=== PATIENT | male | born 1945 | race Caucasian/White ===

== ENCOUNTER 2016-10-23 22:46 | Inpatient (IN) | payer BC ==
--- NOTE | ~2016-10-23 | DS ---
Discharge Summary [facility] [address] [place]. [address] NAME: CRISTINA CLEMENT : 43 STATUS : DIS IN PAT#: [id number] AGE: 71 ADM/REG DATE : 10/23/16 MR#: [id number] REPORT SERV DATE: 11/04/16 DICTATED BY: NDYIA MCGOVERN DATE: 11/04/16 REPORT STATUS : Draft TRANSCRIBED BY: MODL DATE: 11/04/16 ADMISSION DATE: 10/23/2016 DISCHARGE DATE: 11/04/2016 Total days of hospitalization from 10/23/2016 to 11/04/2016. This is a long hospitalization and I personally saw this patient starting from 11/01/2016. For hospitalization before 11/01/2016, please see history of present illness dictated by Dr. Singh on 10/23/2016. Please also see interim discharge summary dictated by Dr. Maurice on 10/28/2016 for the period from 10/23/2016 to 10/28/2016. Please also see notes of nurse practitioner of Andrzej Murillo for period from 10/28/2016 to 11/01/2016. DISCHARGE DIAGNOSES: 1. Status post [id number] myocardial infarction, status post coronary artery bypass grafting done by Dr. El on 10/28/2016. 2. Acute on chronic systolic heart failure, systolic dysfunction with ejection fraction 20%. 3. Severe oxygen-dependent chronic obstructive pulmonary disease. 4. History of atrial fibrillation, currently in normal sinus rhythm. 5. Supratherapeutic INR, currently Coumadin on hold. Check INR on Monday through [facility] Outpatient. 6. Diabetes mellitus type 2, controlled. 7. History of mitral regurgitation, status post mitral valve replacement. 8. Left carotid artery stenosis, noncritical. Follow up with field service supervisor outpatient. 9. Ischemic cardiomyopathy with ejection fraction 20%. 10.Overtreated hypothyroidism, dose of Synthroid decreased to 150 mcg a day. Check TSH in four weeks per nurse marina Aguilar, who sees the patient. 11.History of long-standing tobacco abuse. CONSULTANTS ON THE CASE: During this week, field service supervisor, Dr. Castillo; computer systems designer, Dr. Cabrera Haywood and nurse practitioner, Macarena; Cardiothoracic Surgery, Dr. El and nurse practitioner, Giovanny Greer. For the period from 11/01 to 11/04, I saw the patient. The patient was doing physical therapy and cardiac rehabilitation as well. The patient had one episode of atrial fibrillation yesterday and he was placed on oral amiodarone and he converted to normal sinus rhythm. The patient was still weak and he is on chronic home oxygen as well as with congestive heart failure, ejection fraction 20%. He was strongly recommended to go to inpatient rehabilitation and he was approved for [facility], but the patient strongly refused to go to inpatient rehab. He requested to be discharged home today. He said that he will not stay in the hospital. He will even leave the hospital and he basically wanted to be discharged. The patient was seen by field service supervisor, Dr. Castillo. The patient's INR was supratherapeutic for the last three days and his INR was 4.3 today. His Coumadin was on hold, so since patient was demanding to be discharged, Dr. Castillo recommended the patient to hold his Coumadin, and she scheduled him on Monday on 11/07 [address] [facility] and check his PT/INR. In the same time, Giovanny Greer spoke with the patient's family and they reassured that the patient has somebody at home to stay with him as well as I arranged for home health Discharge Summary [address] [address] NAME: CRISTINA CLEMENT : 43 STATUS : DIS IN PAT#: [id number] AGE: 71 ADM/REG DATE : 10/23/16 MR#: [id number] REPORT SERV DATE: 11/04/16 DICTATED BY: NYDIA MCGOVERN DATE: 11/04/16 REPORT STATUS : Draft TRANSCRIBED BY: KIM DATE: 11/04/16 physical therapy also to take care of the patient at home. Overall, the patient was slowly progressing, but he has severe COPD and he needs to follow up with Dr. Haywood, who left prescriptions for the patient for inhalers. He needs to follow up with Dr. Haywood in two to three weeks as well as he needs to follow up with his primary care provider, Smita Cummings next week. He needs to follow up with nurse practitioner, Giovanny Greer in three to four weeks, and he needs to follow up with field service supervisor, Dr. Castillo. He has an appointment on 11/21 [address] Castillo, field service supervisor. The patient also was told that he needs to check his TSH per Smita Cummings, nurse practitioner, who takes care of the patient. The TSH needs to be checked in four weeks because we reduced the dose of Synthroid to 150 mcg a day. DISCHARGE MEDICATIONS: Aspirin 81 mg a day, Lipitor 40 mg a day, amiodarone 200 mg twice a day. Prescription for amiodarone and Lipitor was given by field service supervisor and recommended by field service supervisor, Dr. Castillo. Lasix 20 mg a day, also prescription recommended by Dr. Castillo. Neurontin 400 three times a day, glimepiride was reduced to 1 mg daily. Levothyroxine dose was reduced to 150 mcg a day and it was prescribed as Synthroid since patient can only tolerate Synthroid. Lisinopril 2.5 mg a day, prescription given by Dr. Castillo. Toprol-XL 50 mg p.o. b.i.d., prescription given by Dr. Castillo. Transdermal patch nicotine, I gave prescription myself. Continue home trazodone on 50-100 mg at bedtime. Breo Ellipta 200/25 mg one puff daily, Respimat 2.5 mcg two puffs daily, albuterol 2.5 mg q.4 hours p.r.n. for shortness of breath. These three prescriptions including Breo, Respimat, and albuterol were prescribed by Dr. Haywood. The patient was discharged in a stable condition per his own demand, although he would benefit more from inpatient rehab with him having very advanced COPD right after coronary artery bypass grafting, but he demanded to be discharged. We spent 45 minutes on discharge and followup appointment scheduled, and he will check his PT/INR on Monday, 11/[address] [facility]. If the INR will be appropriate, Coumadin will be restarted per field service supervisor, Dr. Castillo. I spent 45 minutes on discharge. MG/MODL Nydia Mcgovern M.D. / [id number] CC: Mary Herrera AMIE SIMS Garrick B Spoon, PA-C Michael S. Loga, N.P. Lisa Gail Carkner, M.D. Discharge Summary [address] [address] NAME: CRISTINA CLEMENT RAMESH : 43 STATUS : DIS IN PAT#: [id number] AGE: 71 ADM/REG DATE : 10/23/16 MR#: [id number] REPORT SERV DATE: 11/04/16 DICTATED BY: NYDIA MCGOVERN DATE: 11/04/16 REPORT STATUS : Draft TRANSCRIBED BY: KIM DATE: 11/04/16 Mary Palomares M.D.
--- NOTE | ~2016-10-23 | CN ---
Consultation Report [place] [id number] [facility] [address] [place]. [address] NAME: CRISTINA CLEMENT : 43 STATUS : ADM IN PAT#: [id number] AGE: 71 ADM/REG DATE : 10/23/16 MR#: [id number] REPORT SERV DATE: 10/26/16 DICTATED BY: RAMESH EL DATE: 10/25/16 REPORT STATUS : Draft TRANSCRIBED BY: KIM DATE: 10/25/16 CONSULTATION NOTE DATE OF CONSULTATION: ATTENDING AUTHORIZATION COORDINATOR: Patricia Castillo M.D. REASON FOR CONSULTATION: Severe three-vessel coronary artery disease with recent non-ST elevation myocardial infarction. CHIEF COMPLAINT: Heartburn for five months. HISTORY OF PRESENT ILLNESS: This is a 71-year-old gentleman, smoker of up to two packs per day for 61 years, complains of intermittent chest pain over the last 5 months. He actually reports exercise intolerance and exertional discomfort for about the last two years. He has continued to smoke. He describes his pain as heartburn that goes across his chest, radiates into his shoulders, neck, and back. It is associated with dyspnea and shortness of breath. He has been sleeping, sitting upright in a chair at night because when he lies down he has shortness of breath and pain. He has not found any medication that relieves this. On Monday, he had onset of severe pain and went to [facility]. There he was noted to have abnormal EKG and elevated troponin I. He was referred to [facility] for Cardiology consultation and further care. He underwent echocardiogram here that did not show any significant valvulopathy, ejection fraction was 50%. Today, he underwent coronary arteriogram, this demonstrated severe three- vessel coronary artery disease with total occlusion of the proximal circumflex, and 90% or greater ostial right coronary artery stenosis as well as significant flow-limiting left anterior descending disease as well. His left ventricular function by ventriculogram is 20%. We are asked to see for further evaluation and management. PRIOR MEDICAL HISTORY: 1. COPD. 2. Type 2 diabetes mellitus, non-insulin dependent. 3. Hypothyroidism, on thyroid replacement therapy. PRIOR SURGICAL HISTORY: 1. Cholecystectomy. 2. Hemorrhoidectomy x3. 3. Tonsillectomy. 4. Cataract excision. ALLERGIES: INCLUDE SULFA WHICH CAUSE HIVES. Consultation Report [place] [id number] [place]. [address] NAME: CRISTINA CLEMENT : 43 STATUS : ADM IN PAT#: [id number] AGE: 71 ADM/REG DATE : 10/23/16 MR#: [id number] REPORT SERV DATE: 10/26/16 DICTATED BY: RAMESH EL DATE: 10/25/16 REPORT STATUS : Draft TRANSCRIBED BY: KIM DATE: 10/25/16 MEDICATIONS: At home include: Diazepam 10 mg p.o. b.i.d., gabapentin 400 mg p.o. t.i.d., Amaryl 2 mg p.o. daily, hydrocodone 10/325 one tab p.o. q.6 hours p.r.n. pain, levothyroxine 200 mcg p.o. daily, Mevacor 40 mg p.o. at h.s., metoprolol succinate 25 mg p.o. b.i.d., potassium 10 mEq tablets 1 p.o. daily, ranitidine 150 mg p.o. b.i.d., trazodone 50 mg p.o. at h.s. FAMILY HISTORY: Significant for father with IL at age 72, mother with congestive heart failure, brother had coronary disease and coronary artery bypass grafting. SOCIAL HISTORY: He lives with a insect control inspector and has smoked 2 packs of cigarettes per day or more for the last 61 years. He denies the use of alcohol or illicit drugs. 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 REVIEW OF SYSTEMS: In general, as above. He has upper and lower dentures, previous cataract excision. Wears glasses. He has productive cough of yellow sputum on a daily basis. He has daily wheezing. He denies hemoptysis. He denies any bleeding diathesis. He denies any blood clots. Denies any history of stroke or TIAs. Otherwise, negative or as above. PHYSICAL EXAMINATION: GENERAL: He is a pleasant elderly white haired gentleman, no acute distress. His height is 172.72 cm, weight 90.71 kg giving him BMI of 30.4 kg/m2. VITAL SIGNS: Blood pressure 127/60, pulse is 95, respirations 16, temperature 98 degrees Fahrenheit. HEENT: Normocephalic, atraumatic. Pupils equal, round, reactive to light and accommodation. Sclerae: Clear. Conjunctivae: Goff. No xanthelasma. Oral and buccal mucosa pink and moist, and he has upper and lower dentures in place. Mallampati class II airway. NECK: Supple. No restricted range of motion, left carotid bruit is heard. He has symmetric carotid pulsations bilaterally. No cervical adenopathy. Chest: Scattered wheezes and crackles. Wheezes predominantly over the right posterior lung field. He has no use of accessory muscles. No chest wall tenderness. No deformity. Breasts: Not examined. CV: Regular rate and rhythm without murmur or rub. He has palpable and symmetric central pulses, diminished pulses in the feet. Pulses are palpable. ABDOMEN: Soft, obese, nontender, with normoactive bowel sounds. No hepatosplenomegaly. /RECTAL: Declined. MUSCULOSKELETAL: No kyphoscoliosis. No asymmetry. NEUROLOGIC: He is alert, oriented to day, date, place, and situation, speech is clear, fluent, no focal deficits. No tremors. SKIN, HAIR, AND NAILS: No lesions, masses, or rashes. DATA: Coronary arteriogram which I reviewed today showing three-vessel flow-limiting coronary artery disease and diminished left ventricular function. EKG shows right bundle- branch block and underlying sinus rhythm as well as left posterior fascicular block. Consultation Report [address] [place]. [address] NAME: CRISTINA CLEMENT : 43 STATUS : ADM IN [facility] WITH [facility]#: [id number] AGE: 71 ADM/REG DATE : 10/23/16 MR#: [id number] REPORT SERV DATE: 10/26/16 DICTATED BY: RAMESH EL DATE: 10/25/16 REPORT STATUS : Draft TRANSCRIBED BY: MODL DATE: 10/25/16 LABORATORY DATA: Sodium is 139, potassium 4.3, chloride 99, CO2 of 28, BUN 16, creatinine 0.92. CBC shows WBC is 4.7, hemoglobin 14 g, hematocrit 42.4%, platelets 174,000. Carotid ultrasound shows grade 2 to 3 left internal carotid artery stenosis, right internal carotid artery has no significant disease. CT chest is currently pending. His bedside spirometry shows FVC abnormal at 37% of predicted at 1.49, his FEV1 is 27% of predicted at 0.8, and FEV1 to FVC is 54, consistent with COPD. His arterial blood gases; pH 7.42, CO2 of 44, PO2 of 52 on room air, bicarb is 28.1, saturation 87% on room air. IMPRESSION: Severe three-vessel flow-limiting coronary artery disease with recent non-ST elevation myocardial infarction in a 71-year-old gentleman, with comorbid conditions of chronic obstructive pulmonary disease and type 2 diabetes mellitus. We talked with the patient about possible coronary artery bypass grafting, indications, benefits, and serious risks including but not limited to things such as bleeding, need for blood or blood product transfusion and their attendant risks, infection including deep sternal infection, mediastinitis, pneumonia, damage to the kidneys including kidney failure and dialysis, damage to the liver or the lungs, heart attack, stroke, abnormal heart rhythm, and prolonged ventilation, and even . The patient indicates his understanding and is considering his options at present. We offered him possible bypass grafting on Monday and in the interim would enlist the help of Pulmonology to optimize his breathing and possibly then repeat his bedside spirometry. Using Society of Thoracic Surgeons Database; predicted risk of mortality was 3.43%, morbidity or mortality 26.074%, and this was shared with the patient and his family, and they were told this is elevated risk. We appreciate the opportunity to participate in this patient's care and will follow with you. DICTATED BY: Radha Montenegro/KIM Ramesh El M.D. / [id number] CC: Rufus Maurice Jr, MD
--- NOTE | ~2016-10-23 | CN ---
Consultation Report [facility] [address] [place]. [address] NAME: CRISTINA VLILEDA : 43 STATUS : ADM IN PAT#: [id number] AGE: 71 ADM/REG DATE : 10/23/16 MR#: [id number] REPORT SERV DATE: 10/25/16 DICTATED BY: BERNARDO GARCIA DATE: 10/25/16 REPORT STATUS : Draft TRANSCRIBED BY: MODL DATE: 10/25/16 DATE OF CONSULTATION: 10/25/2016 CHIEF COMPLAINT: Shortness of breath in a patient tentatively scheduled for coronary artery bypass graft surgery. HISTORY OF PRESENT ILLNESS: Mr. Cristina Villeda is a pleasant 71-year-old white male with a past medical history significant for clinical COPD with oxygen dependence, ongoing tobacco dependency, and diabetes mellitus, who presented to [facility] from an outside facility with complaints of chest pain. It should be noted that Mr. Villeda has not been hospitalized recently and is usually in fairly good health given his age and comorbidities. Mr. Villeda is not currently under the care of the wicker molded candles. He is on chronic oxygen at 2-3 L. He occasionally takes nebulized albuterol, but not with any great regularity. The patient has smoked up until the time of presentation. He has smoked approximately two packs a day for the last 60 years. He largely denies symptomatology related to obstructive sleep apnea. He describes his exercise tolerance prior to this recent illness as being fairly good. Apparently, Mr. Villeda has had issues with chest pain over the last two weeks. He eventually presented to [facility]. He was eventually transitioned to [facility] for further workup. Upon arrival, his troponins were elevated as high as 2.07. He did eventually undergo cardiac catheterization, which by report showed significant coronary artery disease. He is currently under consideration for coronary artery bypass graft surgery. Pulmonary has been asked to stratify his pulmonary risk as well as optimize the patient. Currently, the patient is on 3 L of supplemental oxygen with good oxygen saturations. He does have a periodic cough that is producing some thick sputum. This is more than his usual sputum production. He does have some dyspnea on exertion. He does have complaints of worsening wheezing in his chest. He denies recurrent exacerbations of his breathing or recurrent pneumonias. He has been told that he has COPD, but has never undergone formal pulmonary function testing. The patient states that his chest pain has largely resolved at this time. He has no complaints of murmurs or palpitations. He denies any lower extremity edema. In regard to constitutional symptoms, he currently denies fever, chills, nausea, vomiting, abdominal pain, or edema. PAST MEDICAL HISTORY: 1. Clinical COPD. 2. Diabetes mellitus. 3. Tobacco dependency. 4. Herpes zoster. 5. Peripheral arterial disease. Consultation Report [address] [address] NAME: CRISTINA VILLEDA : 43 STATUS : ADM IN PAT#: [id number] AGE: 71 ADM/REG DATE : 10/23/16 MR#: [id number] REPORT SERV DATE: 10/25/16 DICTATED BY: BERNARDO GARCIA DATE: 10/25/16 REPORT STATUS : Draft TRANSCRIBED BY: KIM DATE: 10/25/16 6. Hypertension. 7. Dyslipidemia. 8. Peripheral neuropathy. 9. Hypothyroidism. PAST SURGICAL HISTORY: 1. Cholecystectomy. 2. Hemorrhoidectomy. 3. Right carotid endarterectomy. FAMILY HISTORY: The patient has a strong family history of congestive heart failure as well as coronary artery disease. He knows of no lung disease in the family. SOCIAL HISTORY: The patient is currently accompanied by his daughter, who is at bedside. 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 He has also had a noxious fume exposure in the remote past to acid fumes. TOBACCO/ALCOHOL: As previously mentioned, the patient continues to smoke up until the time of presentation. He has smoked at least two packs a day for the last 60 years. He denies any recent alcohol or illicit drug use. MEDICATIONS: Trazodone 50 mg, DuoNeb, Levaquin 750 mg, Neurontin 400 mg, famotidine 20 mg, levothyroxine 200 mcg, diazepam 10 mg, valacyclovir 1000 mg. ALLERGIES: THE PATIENT HAS KNOWN ALLERGY TO SULFA PRODUCTS. REVIEW OF SYSTEMS: A complete review of systems was performed with the pertinent positives and negatives contained within the body of the HPI. PHYSICAL EXAMINATION: VITAL SIGNS: Blood pressure is 128/65, heart rate is 94, T-max 99.5, respiratory rate is 16, and SpO2 is 92% on 3 L. GENERAL: The patient is a pleasant, well-nourished/well-developed male, who is not currently exhibiting any signs of acute distress. SKIN: Skin with appropriate texture and turgor. No rashes, lesions, or ulcers. Nails are clear without cyanosis or clubbing. HEENT: Head: Skull is normocephalic/atraumatic. Facies symmetric. No masses or lesions. Eyes: Sclera anicteric, conjunctiva pink without exudates. Extraocular movements intact. Pupils are equal, round, reactive to light. Ears: Auricles and tragus without pain to palpation. Hearing is grossly intact. Nose: Bilateral nasal patency. Sinuses without tenderness upon palpation. Throat: The patient is edentulous. Lips, oral mucosa, tongue, palate, and pharynx pink and moist without lesions. Uvula rises equally on phonation. Tongue midline without deviation. Consultation Report [address] [place]. [address] NAME: CRISTINA VILLEDA : 43 STATUS : ADM IN [facility]#: [id number] AGE: 71 ADM/REG DATE : 10/23/16 MR#: [id number] REPORT SERV DATE: 10/25/16 DICTATED BY: BERNARDO GARCIA DATE: 10/25/16 REPORT STATUS : Draft TRANSCRIBED BY: KIM DATE: 10/25/16 NECK: Neck supple. Trachea midline. No cervical lymphadenopathy appreciated. THORAX/LUNGS: Expiratory wheezes is fine as well as fine inspiratory crackles in the posterior bases. Thorax is symmetric with equal chest rise. Breath sounds audible through entire field. No rales, wheezes, rhonchi. CARDIOVASCULAR: Regular rate and rhythm. No murmurs, rubs, or gallops. Anterior chest without thrills, heaves, or lifts. ABDOMEN: Soft, nondistended, nontender. Active bowel sounds in all four quadrants. No hepatosplenomegaly noted. PERIPHERAL VASCULAR: No edema. No varicosities, stasis changes, open sores, ulcerations, or phlebitis. 2+ pulses in radial and dorsalis pedis. MUSCULOSKELETAL: Full AROM and PROM in all joints. No evidence of erythema, deformity, or crepitus. NEUROLOGIC: CN II through XII grossly intact. Good muscle bulk and tone bilaterally. Strength 5/5 throughout. PSYCHIATRIC: The patient demonstrates good judgment and insight. Pt is A&O x3. ACCESSORY DATA: Reveals a BNP of 355, troponin is 2.07, trending to 1.99. Procalcitonin is negative at 0.05. Arterial blood gas on room air reveals pH 7.42, PaCO2 44, PaO2 of 52, and a bicarbonate of 28.1. White blood cell count is 4700, hemoglobin and hematocrit are 14.0 and 42.4. Carotid ultrasound reveals 70% occlusion of the left internal carotid. Chest x- ray reveals bilateral alveolar consolidation with possible fibrosis in the bases. Pulmonary function testing are pending. CT of the chest is pending. IMPRESSION: 1. Coronary artery disease with three-vessel disease, under consideration for coronary artery bypass graft surgery. 2. Mild exacerbation of chronic obstructive pulmonary disease. 3. Suspected concomitant restrictive lung disease. 4. Tobacco dependency-complicated. 5. Chronic hypoxemic respiratory failure. PLAN: 1. At this time, the patient should be considered to be a moderate to high risk for pre, jabier, and postoperative pulmonary complications. We agree with obtaining arterial blood gas sampling, pulmonary function testing, and obtaining further chest imaging studies, including a CT of the chest. The ARISCAT score for overall pulmonary complications is noted to be 42.1%. This includes atelectasis, pulmonary infections, hypoxemia, exacerbation of COPD as well as respiratory failure requiring mechanical ventilation. The Arozullah score is 10.1%. This is a reflection of the risk of his prolonged mechanical ventilation post procedurally. In an attempt to optimize the patient, we will place him on a full armamentarium of nebulized medications and encourage pulmonary toilet. 2. In regard to the patient's clinical COPD, it seems that he is experiencing a mild exacerbation today. As such, we will maximize his nebulized medications. We will give him a short course of oral steroids. Antibiotics have already been ordered by the Consultation [address] [address] NAME: CRISTINA VILLEDA : 43 STATUS : ADM IN [facility]#: [id number] AGE: 71 ADM/REG DATE : 10/23/16 MR#: [id number] REPORT SERV DATE: 10/25/16 DICTATED BY: BERNARDO GARCIA DATE: 10/25/16 REPORT STATUS : Draft TRANSCRIBED BY: KIM DATE: 10/25/16 primary team. 3. The patient's preliminary pulmonary function testing seem to reflect a possible restrictive lung pattern. This along with his questionable findings on chest x-ray or the CT of the chest to surveil for possible pulmonary fibrosis. We will follow this imaging study with further recommendations. 4. In regard to the patient's ongoing tobacco abuse, we have spent greater than 10 minutes counseling the patient in the benefits of smoking cessation. 5. The aforementioned impression and plan has been discussed with Dr. Haywood, who will follow further recommendations. We thank you for this consult and look forward to participating in the care of Mr. Cristina Villeda. LOUIS/KIM Bernardo Garcia PA-C / [id number] CC: Rufus Maurice Jr, MD
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
--- NOTE | ~2016-10-23 | CN ---
Consultation Report [facility] [address] [place]. [address] NAME: CRISTINA VILLEDA : 43 STATUS : ADM Andrea PAT#: [id number] AGE: 71 ADM/REG DATE : 10/23/16 MR#: [id number] REPORT SERV DATE: 10/24/16 DICTATED BY: DATE: REPORT STATUS : Draft TRANSCRIBED BY: MODL DATE: 10/24/16 CONSULTATION DATE OF CONSULTATION: 10/24/2016 CHIEF COMPLAINT/REASON FOR CONSULTATION: Chest pain, abnormal cardiac biomarkers. HISTORY OF PRESENT ILLNESS: Mr. Villeda is a 71-year-old gentleman who presented to [facility] with increased shortness of breath and chest pain. He states that his chest pain has been going on for three to four days, and he was prompted to go to the emergency department by his family. The patient states that he has had increased shortness of breath requiring increased oxygen dependence at home and he has been also extremely weak. The patient stated that he thinks he probably had a heart attack at least several months ago, but did not seek medical attention at that time for his symptoms. He denies nausea or vomiting. He denies any bleeding episodes. He states that he has also had bilateral shoulder pain. He was found to have elevated cardiac biomarker at outside hospital and referred here for additional treatment. PAST MEDICAL HISTORY: 1. COPD. 2. Diabetes mellitus, insulin-dependent. 3. Peripheral arterial disease. 4. Carotid artery stenosis, status post right carotid endarterectomy. 5. Hypertension. 6. Hyperlipidemia. 7. Continued tobacco abuse. SOCIAL HISTORY: The patient smokes approximately two packs of cigarettes per day and has for the past 60 years. He does not use alcohol or extracurricular drugs. FAMILY HISTORY: Significant for father who had a myocardial infarction at the age of 72 and mother who had congestive heart failure. REVIEW OF SYSTEMS: All systems were reviewed and are negative except for dictated in HPI. MEDICATIONS: Outside medications documented at [facility] include: 1. Aspirin 81 mg p.o. daily. 2. Benadryl. 3. Valium. 4. Enalapril 5 mg p.o. daily. 5. Lasix 40 mg p.o. daily. 6. Gabapentin. 7. Glimepiride. Consultation Report [facility] [address] [place]. [address] NAME: CRISTINA VILLEDA : 43 STATUS : ADM Andrea PAT#: [id number] AGE: 71 ADM/REG DATE : 10/23/16 MR#: [id number] REPORT SERV DATE: 10/24/16 DICTATED BY: DATE: REPORT STATUS : Draft TRANSCRIBED BY: KIM DATE: 10/24/16 8. Humulin. 9. Hydrocodone. 10.Lovastatin 40 mg p.o. daily. 11.Metoprolol succinate 25 mg b.i.d. 12.Nitroglycerin. 13.Potassium. 14.Ranitidine. 15.Synthroid. 16.Trazodone. PHYSICAL EXAMINATION: VITAL SIGNS: Blood pressure 114 to 116 , pulse is between 86 and 94 beats per minute, oxygen saturations 96% on 1.5 L nasal cannula, and respirations 20. GENERAL: Mr. Villeda is an ill-appearing 71-year-old gentleman. He is in no distress. NECK: There is bilateral carotid bruits noted. I could not appreciate jugular venous distention. HEART: Regular rate and rhythm. Soft S1, S2. I could not appreciate murmurs, rubs, or gallops. LUNGS: Lung chong are diminished bilaterally. There are inspiratory and expiratory wheezes present in all chong. EXTREMITIES: Femoral pulses are +2 bilaterally. I could not appreciate femoral bruits. Edward test on the right wrist demonstrated dual blood supply to the palm of the hand. MUSCULOSKELETAL: No clubbing or cyanosis of the digits. NEUROLOGIC: I could not appreciate focal neurologic deficits. LABORATORY DATA: Review of tests records medical decision-making at outside hospital demonstrated a troponin of 2.29, here is 2.07, and currently 1.19. BNP 355. TSH is 0.321. Total cholesterol 107, HDL 38, LDL 53, triglycerides 80. Outside hospital [facility] documented a sodium of 141, potassium of 4.3, BUN 14, and creatinine 1.1. White blood cell count 5.4, hemoglobin 14.7, hematocrit 47.3, and platelet count 210. EKG documented normal sinus rhythm. There are ST-segment depressions and the V4 for through V5 consistent with ischemia. There is a right bundle branch block pattern present. IMPRESSION/REPORT/PLAN: 1. Ocr-FT-wulfsqarp myocardial infarction. I agree with heparin drip via the ACS protocol. 2. Continue aspirin. Change to high-intensity statin. Restart the patient's beta prince. Likely, restart the patient's JUAN CARLOS inhibitor. The risks, benefits, and alternatives of cardiac catheterization were discussed with the patient who agrees to proceed. 3. History of right carotid stenosis and bilateral carotid bruits. We will check carotid ultrasound. Consultation Report [place] [id number] [address] NAME: CRISTINA VILLEDA : 43 STATUS : ADM Andrea PAT#: [id number] AGE: 71 ADM/REG DATE : 10/23/16 MR#: [id number] REPORT SERV DATE: 10/24/16 DICTATED BY: DATE: REPORT STATUS : Draft TRANSCRIBED BY: MODL DATE: 10/24/16 4. Check echocardiogram to evaluate for structural heart disease. 5. I strongly encourage tobacco cessation. 6. We would treat the underlying patient's chronic obstructive pulmonary disease exacerbation per hospital medicine. 7. Diabetes mellitus. 8. Hypertension. 9. Hyperlipidemia. Additional recommendations pending clinical course. Thank you very much for the consult. [facility]/KIM Patricia Castillo M.D. / [id number] CC: MD QAMAR Agarwal AMIE SIMS
--- NOTE | ~2016-10-23 | IDS ---
Interim Discharge Summary [facility] [address] [place]. [address] NAME: CRISTINA CLEMENT : 43 STATUS : ADM IN PAT#: [id number] AGE: 71 ADM/REG DATE : 10/23/16 MR#: [id number] REPORT SERV DATE: 10/28/16 DICTATED BY: JR. MAURICE WILLIAM JOHN DATE: 10/28/16 REPORT STATUS : Draft TRANSCRIBED BY: MODLuis DATE: 10/28/16 ADMISSION DATE: 10/23/2016 DISCHARGE DATE: This interim summary covers the time period from 10/23/2016 through 10/28/2016. WORKING DIAGNOSES: Include 1. Miu-QK-fykvgavja myocardial infarction. 2. Three vessel coronary artery disease. 3. Systolic heart failure with an ejection fraction of 25%. 4. Resolved transient lethargy of uncertain etiology. 5. Noncritical left carotid stenosis. 6. COPD without evidence of infection or exacerbation. 7. Diabetes mellitus type 2 with a hemoglobin A1c of 6.3. OPERATIONS, PROCEDURES, AND TREATMENTS: Include 1. Carotid blood flow study done 10/24/2016, which showed no significant stenosis of the right carotid. The left carotid had high-grade category to a low-grade category 3 left internal carotid artery stenosis nearing 70%. It was very difficult due to heavily shadowing plaque. If indicated correlation with CT angiogram would be advised. There was also a nonvisualized right vertebral artery. The left vertebral artery is patent and with antegrade flow. 2. PA and lateral chest x-ray done 10/24/2016, showed alveolar consolidation of the cardiophrenic angles bilaterally concerning for multifocal infection with superimposed bilateral interstitial thickening and reticulonodular opacities. 3. CT of the chest without contrast 10/25/2016, which showed noncalcified 4 mm triangular shaped nodule within the lateral left upper lobe. CT followup is suggested. There is no definite additional nodules or masses appreciated. There was mediastinal lymphadenopathy measuring up to 1.4 x 1.9 cm. There is heavily calcified 3 vessel coronary disease atelectatic changes within the lower lobes of both lobes as well as the right middle lobe, lingula, and right upper lobe. There is moderate upper lobe predominant emphysematous changes in the lungs. There was incidental finding of a duodenal diverticulum and atrophic pancreas and evidence of previous cholecystectomy. This is a category [address] of the chest recommended in [address] of the brain done 10/26/2016, which showed no acute stroke or other intracranial abnormality. There was yusu-fb-[id number] diffuse cerebral involutional changes and mild deep white matter chronic microvascular changes. 5. Echocardiogram done 10/24/2016, which showed left ventricular systolic function, borderline at 50%. Left ventricular diastolic function intact. Right ventricular systolic function intact. No significant valvular lesions. 6. Cardiac catheterization done 10/25/2016, which showed severe 3-vessel flow-limiting coronary artery disease with chronic total occlusion of left circumflex artery and left- to-left collaterals with subtotal occlusion of the right coronary artery with left-to- right collaterals. There was elevated left ventricular end-diastolic filling pressure of 26 mmHg. There was severely depressed left ventricular systolic function with a single plane ventriculogram, ejection fraction estimated at 20%. Echocardiogram Interim Discharge Summary [address] [address] NAME: CRISTINA CLEMENT : 43 STATUS : ADM IN PAT#: [id number] AGE: 71 ADM/REG DATE : 10/23/16 MR#: [id number] REPORT SERV DATE: 10/28/16 DICTATED BY: JR. MAURICE WILLIAM JOHN DATE: 10/28/16 REPORT STATUS : Draft TRANSCRIBED BY: KIM DATE: 10/28/16 previously done estimated at 50%. The patient had a patent left subclavian with mild nonlimiting flow disease and patent left internal mammary artery. MEDICATIONS AT TRANSFER: Please see the daily progress note. HOSPITAL COURSE: Briefly, the patient is a 71-year-old male with a past history of COPD and diabetes who presented to the emergency room on 10/23/2016 for chest pain. He was transferred from [facility] for chest pain which had been occurring for the prior two-to- three weeks. It is more in the shoulder than in the chest and associated with weakness. The patient is quite vague with his symptoms. Initial exam showed temperature 98.3, heart rate 91, respiratory rate not documented, and blood pressure 116/68. Troponin was 2.29. Arterial blood gas showed a pH of 7.44, pCO2 of 48, and PO2 of 61 on 2 L. BUN and creatinine were 14 and 1.1 respectively. Hemoglobin was 14.7. EKG showed right bundle branch block without acute ST or T-wave changes although there was ST depression in V2 through V6. The patient was admitted initially to the Clinical Decision unit. He was seen in consultation by Cardiology who recommended a carotid ultrasound, cardiac catheterization, and echocardiogram which were all detailed above. The patient was found to have three- vessel coronary artery disease. He was evaluated by cardiovascular thoracic surgery and found to be a candidate for bypass. Thoracic surgery felt pulmonary consultation for pulmonary optimization preop was indicated, therefore the patient was seen in consultation by Dr. Haywood of Pulmonary Medicine. On 10/25/2016, the patient was started on Levaquin and steroids as well as optimizing inhaled medications. At preop, the patient is on 2 L oxygen by nasal cannula. He does have some wheezing but does not complain of shortness of breath. Regarding the patient's diabetes mellitus, his regimen was increased. His hemoglobin A1c was 6.6. He was placed on a basal bolus insulin regimen and will be on an insulin drip postop. His glycemic control worsened with the mu-ism of steroids. Regarding the patient's transient lethargic episode, this occurred on the night of 10/26/2016. The patient would not awaken. He had not had significant mood or sedating medications. He had an arterial blood gas which did not show significant hypercarbia since the patient is on heparin drip. He also had a CT of the head which showed no acute findings. The episode resolved spontaneously and without specific etiology. The patient is to go to bypass today 10/28/2016, and will be followed by one of my partners tomorrow. WJF/MODL Rufus Maurice Jr, MD Interim Discharge Summary [address] [address] NAME: CRISTINA CLEMENT : 43 STATUS : ADM IN PAT#: [id number] AGE: 71 ADM/REG DATE : 10/23/16 MR#: [id number] REPORT SERV DATE: 10/28/16 DICTATED BY: JR. MAURICE WILLIAM JOHN DATE: 10/28/16 REPORT STATUS : Draft TRANSCRIBED BY: KIM DATE: 10/28/16 / [id number] CC: Rufus Maurice Jr, MD AMIE SIMS REECE
--- NOTE | ~2016-10-23 | OP ---
Record Of Operation [facility] [address] [place]. [address] NAME: CRISTINA CLEMENT : 43 STATUS : ADM IN [facility]#: [id number] AGE: 71 ADM/REG DATE : 10/23/16 MR#: [id number] REPORT SERV DATE: 10/29/16 DICTATED BY: RAMESH EL DATE: 10/28/16 REPORT STATUS : Draft TRANSCRIBED BY: MODL DATE: 10/28/16 DATE OF PROCEDURE: 10/28/2016 PREOPERATIVE DIAGNOSES: 1. Coronary artery disease with kty-SJ-eqsrocbrz myocardial infarction. 2. Acute systolic heart failure (ejection fraction 20% on cath). 3. Mitral valve insufficiency. 4. Insulin-dependent diabetes mellitus type 2. 5. Chronic obstructive pulmonary disease, severe. 6. Peripheral vascular disease, status post right carotid endarterectomy. 7. Hypertension. 8. Hyperlipidemia. 9. Tobacco abuse. 10.Obesity. POSTOPERATIVE DIAGNOSES: 1. Coronary artery disease with kpm-KR-[id number] myocardial infarction. 2. Acute systolic heart failure (ejection fraction 20% on cath). 3. Mitral valve insufficiency. 4. Insulin-dependent diabetes mellitus type 2. 5. Chronic obstructive pulmonary disease, severe. 6. Peripheral vascular disease, status post right carotid endarterectomy. 7. Hypertension. 8. Hyperlipidemia. 9. Tobacco abuse. 10.Obesity. PROCEDURES PERFORMED: 1. Urgent coronary artery bypass grafting x4, left internal mammary artery placed to left anterior descending, reverse saphenous vein graft placed to the first diagonal, reverse saphenous vein graft placed to the second obtuse marginal, reverse saphenous vein graft placed to the posterior descending artery. 2. Mitral valve repair using a 30-mm annuloplasty ring system (IMR). 3. Endoscopic vein harvest, saphenous vein from right thigh. 4. Transesophageal echocardiography. SURGEON: Ramesh El M.D. DIRECTOR OF CONSTRUCTION: John Duarte and James Waters. ANESTHESIA: General with Dr. Kidd. BAKER OPERATOR AUTOMATIC: Patricia Castillo M.D. INDICATIONS: This is a 71-year-old gentleman, who presented to [facility] with increasing shortness of breath and chest discomfort. He stated this chest pain had Record Of Operation [facility] [address] [place]. [address] NAME: CRISTINA CLEMENT : 43 STATUS : ADM IN PAT#: [id number] AGE: 71 ADM/REG DATE : 10/23/16 MR#: [id number] REPORT SERV DATE: 10/29/16 DICTATED BY: RAMESH EL DATE: 10/28/16 REPORT STATUS : Draft TRANSCRIBED BY: KIM DATE: 10/28/16 been going on for three to four days and he was prompted to go the emergency room by his family. Because of increasing shortness of breath, he is very weak. In the emergency room, he was evaluated and underwent testing, and had elevated troponin. He was transferred to [facility] for further treatment. He has a significant history of right carotid artery stenosis and status post endarterectomy. Subsequent carotid ultrasound study demonstrated grade 1 disease on the right and grade 2 disease on the left. Following his transfer, he has medically stabilized and underwent cardiac catheterization. Prior to this, the patient did have one episode of lethargy and he underwent a CT of the brain without contrast on 10/26/2016 that demonstrated no acute CVA. Cardiac catheterization was performed demonstrating severe three-vessel coronary disease with occluded circumflex and right coronary artery systems. There was severe disease in LAD. Ventricular function was markedly reduced with an ejection fraction of 20%. We were asked to see the patient for possible urgent revascularization. He was seen by the Pulmonary Service because of history of COPD and exacerbation of COPD with his myocardial infarction. FEV1 was found to be 0.8 L, which is 27% of predicted. He was placed on steroids and inhaled bronchodilators with good response. Discussed possible coronary artery bypass grafting with the patient. After discussing the operation and its indication and risks, he wished to proceed. STS predicted mortality of 3.5% morbidity and mortality 26%. FINDINGS AT OPERATION: 1. Cross-clamp 102 minutes, total pump time 128 minutes. 2. The LAD was a 2 mm heavily diseased vessel. A 2.5 mm MAURICIO was anastomosed to it with good runoff. 3. The first diagonal was 1.75 mm heavily diseased. A 4 mm RSVG was anastomosed to it with good runoff. 4. The second obtuse marginal was 1.75 mm moderately diseased. A 4 mm RSVG was anastomosed to it with good runoff. 5. The posterior descending artery was 1.75 mm and moderately diseased. A 4 mm RSVG was anastomosed to it with good runoff. 6. The vein quality was good and all grafts had good Doppler signal at the end of the case. 7. The mitral valve leaflets were mildly sclerotic, especially the anterior leaflet. There was definite restriction of the posterior leaflet on echocardiography and visualized in the operating suite. There were no flail leaflets. I felt this was type 3b defect. 8. The mitral valve was repaired using a 30 mm IMR annuloplasty ring system. Sixteen Cor- Knot secured this annuloplasty ring in place. 9. We did ligate and amputate the left atrial appendage using 60 mm purple staple load. 10.GERARDO at the end of the operation demonstrated continued diminished ventricular function, but improved compared to preop. There was no residual mitral insufficiency. There was mild aortic valve sclerosis without stenosis. PATHOLOGIC SPECIMENS: Left atrial appendage. DESCRIPTION OF PROCEDURE: The patient was brought to the operating suite. General Record Of Operation [facility] [address] [place]. [address] NAME: CRISTINA CLEMENT : 43 STATUS : ADM IN [facility]#: [id number] AGE: 71 ADM/REG DATE : 10/23/16 MR#: [id number] REPORT SERV DATE: 10/29/16 DICTATED BY: RAMESH EL DATE: 10/28/16 REPORT STATUS : Draft TRANSCRIBED BY: KIM DATE: 10/28/16 anesthesia was induced. Airway was secured with an endotracheal tube. Lines were secured by Anesthesia. Dorsey catheter was placed. The patient's chest, abdomen, groin, and legs were prepped with Hibiclens and ChloraPrep and draped with Ioban sterile sheets. GERARDO probe was placed by Dr. Kidd and examination carried out in my attendance. We discussed the findings on GERARDO and I felt that there is most likely restriction of the posterior leaflet of the mitral valve amenable to repair using annuloplasty ring. The saphenous vein was harvested from the right thigh using endoscopic technique. Briefly, the vein was cut directly down upon through a 2 cm incision placed in the medial aspect of the right knee. Then, using VasoView trocars, the vessel was dissected from the surrounding subcutaneous tissue and fat. The side branches were identified, ligated, and divided with cautery. Once adequate length of vein had been dissected, a counterincision was made up in the groin where the vein was ligated and divided, and brought through the knee incision. The vein quality was good. The leg was made hemostatic and closed in layers with absorbable suture and skin closed in subcuticular fashion. Next, a midline sternal incision was made and the sternum opened with a saw. The left hemithorax was elevated and the endothoracic fascia was incised. Side branch of the KAYDEN were clipped and divided. Once the KAYDEN was completely dissected, the patient was anticoagulated with heparin and chest tube placed in the left pleural cavity. The KAYDEN was clipped and divided distally. There was good flow through the KAYDEN and its pedicle was infiltrated with papaverine. Kelsey retractor was placed in the pericardium from the innominate vein. The diaphragm was T'd and tacked to the side of the chest wall. Cannulation pursestring sutures were placed and cannulation was carried in routine manner. A retrograde cardioplegia cannula was placed in the coronary sinus. When all was in readiness, the patient was placed on cardiopulmonary bypass. The distal targets were marked out on the heart as described in the findings. Then, the aorta was crossclamped. Initial dose cold blood cardioplegia solution was given in a combination of antegrade and retrograde fashion, then in retrograde manner following proximal anastomoses. Following the first dose of cardioplegia, the heart was gently retracted towards the surgeon. The left atrial appendage was grasped. It was ligated and amputated at its base using thoracoscopic stapler and a 60 mm purple staple load. Heart support was then placed. We then turned our attention towards the bypass graft. Heart was first positioned for the PDA graft. Arteriotomy was made and the vein graft trimmed and anastomosed to it with 7-0 Prolene. The vein graft was measured to the right side of the ascending aorta, where it was divided. We then positioned the heart for the obtuse marginal graft. Another arteriotomy was made and the vein graft trimmed and anastomosed to this vessel with 7-0 Prolene. This vein graft was then measured back to the left side of the ascending aorta where it was divided. Next, proximal ends of the two vein grafts were anastomosed to 4.5 mm punch aortotomy with 6-0 Prolene. Another dose of cardioplegia was given. We positioned the heart for the diagonal graft. Arteriotomy was made and the vein graft trimmed and anastomosed to it with 7-0 Prolene. This vein graft was measured to the left side of the ascending aorta where it was divided and anastomosed to a 4.5 mm punch aortotomy with 6-0 Record Of Operation [facility] [address] [place]. [address] NAME: CRISTINA CLEMENT : 43 STATUS : ADM IN PAT#: [id number] AGE: 71 ADM/REG DATE : 10/23/16 MR#: [id number] REPORT SERV DATE: 10/29/16 DICTATED BY: RAMESH EL DATE: 10/28/16 REPORT STATUS : Draft TRANSCRIBED BY: MODL DATE: 10/28/16 Prolene. A short dose cardioplegia was given. We then positioned the heart for the LAD graft. Arteriotomy was made in the mid LAD. The KAYDEN was brought out of the left chest through a notch in the pericardium over the pulmonary artery. The KAYDEN was opened and anastomosed to the LAD with running suture of 8-0 Prolene. The endothoracic fascia was tacked to the epicardium. Another dose of cardioplegia was given and heart support was removed. We then turned our attention towards the mitral valve. The interatrial groove of [place] was dissected. A left atriotomy was made and a Kelsey retractor apparatus was assembled and positioned allowing good visualization of the mitral valve. The mitral valve was examined and as stated above, there were no flail leaflets. There was mild thickening of the anterior leaflet. There was definite restriction of the posterior leaflet motion secondary to ischemia, type 3b. Then, interrupted nonpledgeted sutures of 2-0 Tycron were placed circumferentially about the mitral valve anulus using a horizontal mattress fashion. A 30 mm IMR annuloplasty ring system was selected. The suture was then passed through the sewing cuff of the annuloplasty ring. This was lowered into position and each sutures individually secured and divided using a Cor-Knot device. A total of 16 Cor-Knots were utilized. Iced saline injection through the orifice of the mitral valve demonstrated no insufficiency. Warming was begun. An LV vent was directed from the right superior pulmonary vein into the left ventricle through the mitral valve. This was secured. The left atriotomy was then closed in a two-layer fashion with running pledgeted suture of 4-0 Prolene. The patient was placed in Trendelenburg and a final dose of warm blood cardioplegia was given in a retrograde fashion. Ventricular and atrial pacing wires were placed. Following the last dose cardioplegia and deairing of the aorta, the aortic cross-clamp was removed. The distal and proximal anastomoses were inspected and made hemostatic. Pacing wires were placed. Doppler demonstrated good flow through the grafts. The heart was allowed to rest on cardiopulmonary bypass and inotropic agents were started. Ventilation was begun. The heart was paced initially in an AV sequential fashion. This was later discontinued, as the patient resumed a normal sinus rhythm. When the heart demonstrated good contractility, it was allowed to fill and eject. Deairing was monitored with GERARDO and when deairing was completed, the LV vent was removed and each pursestring sutures tied. The patient was taken out of Trendelenburg and the ascending aortic vent removed, and each pursestring sutures tied and reinforced. The patient was weaned from cardiopulmonary bypass with inotropic support. The venous cannulas were removed and each pursestring sutures tied. GERARDO examination demonstrated improved ventricular function. There was no residual mitral insufficiency. Protamine was administered by Anesthesia and following a period of hemodynamic stability, the aortic cannula was removed and each pursestring sutures tied and reinforced. The patient continued do well and chest irrigated copiously with saline. Meticulous Record Of Operation [address] [address] NAME: RACQUELCRISTINA RAMESH : 43 STATUS : ADM IN [facility]#: [id number] AGE: 71 ADM/REG DATE : 10/23/16 MR#: [id number] REPORT SERV DATE: 10/29/16 DICTATED BY: RAMESH EL DATE: 10/28/16 REPORT STATUS : Draft TRANSCRIBED BY: MODLuis DATE: 10/28/16 hemostasis was obtained. Hemasorb was placed along the cut edge of the sternum. Once hemostasis was assured, the pericardium was draped over the anterior surface of the heart and tacked into position. Doppler demonstrated good flow through the grafts following protamine administration. Chest tubes were placed and the sternum reapproximated with eight sternal wires. The clavipectoral fascia and linea alba were closed with #1 Stratafix. The subcutaneous tissue was closed with 2-0 Stratafix and skin closed in subcuticular fashion. The patient tolerated the procedure well. There were no complications. Sponge and needle counts were correct. DISPOSITION: The patient left intubated, sedated, and transported to the intensive care unit in stable condition. ROWAN/KIM Ramesh El M.D. / [id number] CC: Rufus Maurice Jr, MD Lisa Gail Carkner, M.D.
--- NOTE | ~2016-10-23 | PUL ---
[address] [address] NAME: CRISTINA CLEMENT : 43 STATUS : ADM IN [facility]#: [id number] AGE: 71 ADM/REG DATE : 10/23/16 MR#: [id number] REPORT SERV DATE: 10/30/16 DICTATED BY: MICHAELLE POWELL DATE: 10/30/16 REPORT STATUS : Draft TRANSCRIBED BY: MODL DATE: 10/30/16 PULMONARY FUNCTION TEST PROCEDURE PERFORMED: Spirometry. FVC 37% of predicted with an FEV1 of 0.8 L or 27%. IMPRESSION: Very severe obstructive ventilatory defect. CB/KIM Michaelle Powell M.D. / [id number] CC: Rufus Maurice Jr, MD
[2016-10-24 01:13] LABS: B NATRIURETIC PEPTIDE (BNP) 355.5 PG/ML (< 100.0)
[2016-10-24 01:33] LABS: CHOL/HDL RATIO(NOT ORDER) 2.8 (0-5); ULTRASENSITIVE TSH 0.323 MCIU/ML (0.358-3.740)
[2016-10-24 01:35] LABS: TROPONIN I 2.07 NG/ML (<0.05)
[2016-10-24 07:50] LABS: TROPONIN I 1.99 NG/ML (<0.05)
[2016-10-24 08:22] LABS: GLYCOHEMOGLOBIN (HbA1c) 6.7 % (4.7-6.1)
[2016-10-24 09:58] LABS: BASOPHILS 0.4 %; BASOPHILS ABSOLUTE 0.02 10/3/uL (0.0-0.16); EOSINOPHILS 0.2 %; EOSINOPHILS ABSOLUTE 0.01 10/3/uL (0.0-0.53); HEMATOCRIT 43.5 % (40.0-51.0); HEMOGLOBIN 14.2 g/dL (13.6-17.8); IMMATURE GRANULOCYTES 0.2 %; IMMATURE GRANULOCYTES ABSOLUTE 0.01 10/3/uL (0.0-0.11); LYMPHOCYTES 20.4 %; LYMPHOCYTES ABSOLUTE 1.08 10/3/uL (0.67-4.30); MEAN CORPUS HGB CONC 32.6 g/dL (32.0-36.0); MEAN CORPUSCULAR HEMOGLOB 31.3 pg (26.0-34.0); MONOCYTES 11.5 %; MONOCYTES ABSOLUTE 0.61 10/3/uL (0.21-1.20); NEUTROPHILS 67.3 %; NEUTROPHILS ABSOLUTE 3.57 10/3/uL (2.02-8.40); PLATELET COUNT 197 10/3/uL (150-400); RED CELL COUNT 4.53 10/6/uL (4.7-6.1); WHITE BLOOD CELLS 5.3 10/3/uL (4.5-10.5)
[2016-10-24 10:01] LABS: MANUAL DIFF NO %
[2016-10-24 10:24] LABS: BUN (BLOOD UREA NITROGEN) 20 MG/DL (6-23); CALCIUM, SERUM 8.4 MG/DL (8.5-10.4); CHLORIDE, SERUM 99 MMOL/L (96-112); CO2 (CARBON DIOXIDE) 32 MMOL/L (24-34); CREATININE 0.87 MG/DL (0.70-1.30); FREE T4 1.39 NG/DL (0.76-1.46); GFR AFRICAN AMERICAN 100 ML/MIN (>=60); GFR NON AFRICAN AMERICAN 86 ML/MIN (>=60); GLUCOSE, SERUM 114 MG/DL (60-99); POTASSIUM, SERUM 3.7 MMOL/L (3.5-5.3); SODIUM, SERUM 141 MMOL/L (135-148)
[2016-10-24 10:32] LABS: SGPT(ALT) 24 U/L (5-65)
[2016-10-24] MEDS ORDERED: TRAZ50 PO (13:57)
[2016-10-24] MEDS ORDERED: ZANTAC150 MG PO (13:59)
[2016-10-24] MEDS ORDERED: NORCO1 TAB PO (14:00)
[2016-10-24] MEDS ORDERED: VALIUM10 MG PO (14:49)
[2016-10-24] MEDS ORDERED: TOPXL25 PO (14:50)
[2016-10-24] MEDS ORDERED: TOPXL25 (14:50)
[2016-10-24] MEDS ORDERED: NEUR400 PO (14:51)
[2016-10-24] MEDS ORDERED: K-TABS10 MEQ PO (14:52)
[2016-10-24] MEDS ORDERED: MEVACOR40 MG PO (14:54)
[2016-10-24] MEDS ORDERED: AMARYL2 PO (14:54)
[2016-10-24] MEDS ORDERED: SYNTHROID200 MCG PO (14:55)
[2016-10-25 05:05] LABS: BASOPHILS 0.2 %; BASOPHILS ABSOLUTE 0.01 10/3/uL (0.0-0.16); EOSINOPHILS 0.2 %; EOSINOPHILS ABSOLUTE 0.01 10/3/uL (0.0-0.53); HEMATOCRIT 42.4 % (40.0-51.0); IMMATURE GRANULOCYTES 0.2 %; IMMATURE GRANULOCYTES ABSOLUTE 0.01 10/3/uL (0.0-0.11); LYMPHOCYTES 14.1 %; LYMPHOCYTES ABSOLUTE 0.66 10/3/uL (0.67-4.30); MEAN CORPUSCULAR HEMOGLOB 31.3 pg (26.0-34.0); MEAN CORPUSCULAR VOLUME 94.9 fL (80-100); MONOCYTES 11.6 %; MONOCYTES ABSOLUTE 0.54 10/3/uL (0.21-1.20); NEUTROPHILS 73.7 %; NEUTROPHILS ABSOLUTE 3.44 10/3/uL (2.02-8.40); PLATELET COUNT 174 10/3/uL (150-400); RBC DISTRIBUTION WIDTH 12.9 % (12.0-16.0); RED CELL COUNT 4.47 10/6/uL (4.7-6.1); WHITE BLOOD CELLS 4.7 10/3/uL (4.5-10.5)
[2016-10-25 05:08] LABS: MANUAL DIFF NO %
[2016-10-25 05:13] LABS: INTERNATIONAL NORMAL RATI 1.2 UNITS (-); PROTIME (NOT ORD) 14.7 SEC (12.0-14.5)
[2016-10-25 05:23] LABS: CALCIUM, SERUM 7.9 MG/DL (8.5-10.4); CHLORIDE, SERUM 99 MMOL/L (96-112); CHOL/HDL RATIO(NOT ORDER) 2.9 (0-5); CHOLESTEROL 101 MG/DL (< 200); CO2 (CARBON DIOXIDE) 28 MMOL/L (24-34); CREATININE 0.92 MG/DL (0.70-1.30); GFR AFRICAN AMERICAN 96 ML/MIN (>=60); GFR NON AFRICAN AMERICAN 83 ML/MIN (>=60); HDL CHOLESTEROL 35 MG/DL (> 39); LDL CHOLESTEROL 51 MG/DL (< 130); NON-HDL CHOLESTEROL 66 MG/DL (< 160); POTASSIUM, SERUM 4.3 MMOL/L (3.5-5.3); SODIUM, SERUM 139 MMOL/L (135-148); TRIGLYCERIDE 76 MG/DL (< 150)
[2016-10-25 05:37] LABS: BUN (BLOOD UREA NITROGEN) 16 MG/DL (6-23); GLUCOSE, SERUM 182 MG/DL (60-99)
[2016-10-25 06:08] LABS: PROCALCITONIN <0.05 ng/mL (<0.5)
[2016-10-25 15:03] LABS: HCO3 (ACTUAL BICARBONATE) 28.1 MEQ/L (23-27); INSTRUMENT SERIAL # 8083; PCO2 (CO2 TENSION) 44 MMHG (35-45); PO2 (O2 TENSION) 52 MMHG (79-93); pH 7.42 (7.37-7.43)
[2016-10-25 15:04] LABS: ALLENS TEST Pos; CARBOXYHEMOGLOBIN 1.6 % (0-3); HEMOBLOGIN CONTENT 14.6 G/DL (14-18); METHEMOGLOBIN 0.3 % (0-3); O2 CONTENT 17.5 VOL% (18-24); SAMPLE Arterial
[2016-10-26 06:34] LABS: BASOPHILS 0.3 %; BASOPHILS ABSOLUTE 0.01 10/3/uL (0.0-0.16); EOSINOPHILS 0 %; HEMATOCRIT 42.2 % (40.0-51.0); HEMOGLOBIN 13.9 g/dL (13.6-17.8); LYMPHOCYTES 25.3 %; MEAN CORPUS HGB CONC 32.9 g/dL (32.0-36.0); MEAN CORPUSCULAR VOLUME 94.2 fL (80-100); MEAN PLATELET VOLUME 10.6 fL (9.2-13.0); MONOCYTES 11.2 %; NEUTROPHILS 63.2 %; NEUTROPHILS ABSOLUTE 2.25 10/3/uL (2.02-8.40); PLATELET COUNT 142 10/3/uL (150-400); RBC DISTRIBUTION WIDTH 13.1 % (12.0-16.0); RED CELL COUNT 4.48 10/6/uL (4.7-6.1); WHITE BLOOD CELLS 3.6 10/3/uL (4.5-10.5)
[2016-10-26 06:35] LABS: MANUAL DIFF NO %
[2016-10-26 06:45] LABS: BUN (BLOOD UREA NITROGEN) 15 MG/DL (6-23); CALCIUM, SERUM 8.1 MG/DL (8.5-10.4); CHLORIDE, SERUM 104 MMOL/L (96-112); CO2 (CARBON DIOXIDE) 27 MMOL/L (24-34); CREATININE 0.84 MG/DL (0.70-1.30); GFR AFRICAN AMERICAN 101 ML/MIN (>=60); GFR NON AFRICAN AMERICAN 87 ML/MIN (>=60); GLUCOSE, SERUM 169 MG/DL (60-99); POTASSIUM, SERUM 4.3 MMOL/L (3.5-5.3); SODIUM, SERUM 140 MMOL/L (135-148)
[2016-10-26 18:49] LABS: BE (BASE EXCESS) 2.4 MEQ/L (0 +/- 2.5); CARBOXYHEMOGLOBIN 0.5 % (0-3); HCO3 (ACTUAL BICARBONATE) 29.1 MEQ/L (23-27); HEMOBLOGIN CONTENT 14.4 G/DL (14-18); INSTRUMENT SERIAL # 35151; METHEMOGLOBIN 0.4 % (0-3); O2 CONTENT 18.5 VOL% (18-24); PCO2 (CO2 TENSION) 54 MMHG (35-45); PO2 (O2 TENSION) 65 MMHG (79-93); pH 7.35 (7.37-7.43)
[2016-10-26 18:50] LABS: ALLENS TEST Pos; DEVICE NC; SAMPLE Arterial
[2016-10-27 00:21] LABS: BE (BASE EXCESS) 2.4 MEQ/L (0 +/- 2.5); CARBOXYHEMOGLOBIN 0.7 % (0-3); DEVICE NC; HCO3 (ACTUAL BICARBONATE) 28.2 MEQ/L (23-27); INSTRUMENT SERIAL # 35151; METHEMOGLOBIN 0.5 % (0-3); O2 CONTENT 18.4 VOL% (18-24); OPERATOR ID 23712; PCO2 (CO2 TENSION) 48 MMHG (35-45); PO2 (O2 TENSION) 77 MMHG (79-93); SAMPLE Arterial; pH 7.39 (7.37-7.43)
[2016-10-27 00:22] LABS: ALLENS TEST Pos
[2016-10-27 03:34] LABS: HEMATOCRIT 40.5 % (40.0-51.0); HEMOGLOBIN 13.3 g/dL (13.6-17.8); MEAN CORPUS HGB CONC 32.8 g/dL (32.0-36.0); MEAN CORPUSCULAR VOLUME 94.4 fL (80-100); MEAN PLATELET VOLUME 12.5 fL (9.2-13.0); PLATELET COUNT 184 10/3/uL (150-400); RED CELL COUNT 4.29 10/6/uL (4.7-6.1); WHITE BLOOD CELLS 2.7 10/3/uL (4.5-10.5)
[2016-10-27 03:35] LABS: MANUAL DIFF YES %
[2016-10-27 03:56] LABS: BAND NEUTROPHILS 4 %; LYMPHOCYTES 26 %; MONOCYTES 3 %; MONOCYTES ABSOLUTE (CALC) 0.08 10/3/uL (0.21-1.20); NEUTROPHILS ABSOLUTE (CALC) 1.92 10/3/uL (2.02-8.40); PLATELET ESTIMATE ADQ (ADEQUATE); SEGMENTED NEUTROPHIL (0) 67 %; TOTAL NUCLEATED CELLS 100
[2016-10-27 03:57] LABS: RBC MORPHOLOGY NORM (NORMAL)
[2016-10-27 22:00] LABS: BASOPHILS 0.4 %; BASOPHILS ABSOLUTE 0.01 10/3/uL (0.0-0.16); EOSINOPHILS 0 %; HEMATOCRIT 41.1 % (40.0-51.0); HEMOGLOBIN 13.2 g/dL (13.6-17.8); LYMPHOCYTES 19.5 %; MEAN CORPUS HGB CONC 32.1 g/dL (32.0-36.0); MEAN CORPUSCULAR HEMOGLOB 30.2 pg (26.0-34.0); MEAN CORPUSCULAR VOLUME 94.1 fL (80-100); MEAN PLATELET VOLUME 10.7 fL (9.2-13.0); MONOCYTES 10.2 %; MONOCYTES ABSOLUTE 0.26 10/3/uL (0.21-1.20); NEUTROPHILS 69.9 %; NEUTROPHILS ABSOLUTE 1.79 10/3/uL (2.02-8.40); RBC DISTRIBUTION WIDTH 12.6 % (12.0-16.0); RED CELL COUNT 4.37 10/6/uL (4.7-6.1); WHITE BLOOD CELLS 2.6 10/3/uL (4.5-10.5)
[2016-10-27 22:02] LABS: MANUAL DIFF NO %; PLATELET COUNT 125 10/3/uL (150-400)
[2016-10-27 22:11] LABS: INTERNATIONAL NORMAL RATI 1.1 UNITS (-); PROTIME (NOT ORD) 13.6 SEC (12.0-14.5)
[2016-10-27 22:12] LABS: PARTIAL THROMBO TIME 69.6 SEC (22.5-37.2)
[2016-10-27 22:25] LABS: A/G RATIO 0.7 (0.7-1.9); ALBUMIN 2.9 G/DL (3.5-5.0); ALKALINE PHOSPHATASE 80 U/L (45-117); BUN (BLOOD UREA NITROGEN) 20 MG/DL (6-23); CALCIUM, SERUM 8.5 MG/DL (8.5-10.4); CHLORIDE, SERUM 104 MMOL/L (96-112); CO2 (CARBON DIOXIDE) 27 MMOL/L (24-34); CREATININE 1.02 MG/DL (0.70-1.30); GFR AFRICAN AMERICAN 85 ML/MIN (>=60); GFR NON AFRICAN AMERICAN 73 ML/MIN (>=60); GLOBULIN 4.1 G/DL (2.5-4.1); GLUCOSE, SERUM 300 MG/DL (60-99); IRON, SERUM 54 MCG/DL (35-150); SGOT(AST) 49 U/L (5-40); SGPT(ALT) 33 U/L (5-65); SODIUM, SERUM 140 MMOL/L (135-148); TOTAL BILIRUBIN 0.2 MG/DL (0-1.2)
[2016-10-28 04:19] LABS: ASCORBIC ACID (UR NOT ORDER) NEG (NEG); BILIRUBIN, URINE NEGATIVE (NEG); KETONE, URINE NEGATIVE (NEG); LEUKOCYTE ESTERASE(NOT OR NEG (NEG); WBC (NOT ORDERED) (RFLEX) 1 (0-5)
[2016-10-28 06:01] LABS: BASOPHILS 0.9 %; BASOPHILS ABSOLUTE 0.03 10/3/uL (0.0-0.16); EOSINOPHILS 0 %; HEMATOCRIT 40.2 % (40.0-51.0); HEMOGLOBIN 13.2 g/dL (13.6-17.8); IMMATURE GRANULOCYTES 0.3 %; IMMATURE GRANULOCYTES ABSOLUTE 0.01 10/3/uL (0.0-0.11); LYMPHOCYTES 31.2 %; LYMPHOCYTES ABSOLUTE 1.04 10/3/uL (0.67-4.30); MEAN CORPUS HGB CONC 32.8 g/dL (32.0-36.0); MEAN CORPUSCULAR HEMOGLOB 31.1 pg (26.0-34.0); MEAN CORPUSCULAR VOLUME 94.6 fL (80-100); MONOCYTES 9.9 %; MONOCYTES ABSOLUTE 0.33 10/3/uL (0.21-1.20); NEUTROPHILS 57.7 %; NEUTROPHILS ABSOLUTE 1.92 10/3/uL (2.02-8.40); PLATELET COUNT 144 10/3/uL (150-400); RBC DISTRIBUTION WIDTH 12.5 % (12.0-16.0); RED CELL COUNT 4.25 10/6/uL (4.7-6.1); WHITE BLOOD CELLS 3.3 10/3/uL (4.5-10.5)
[2016-10-28 06:07] LABS: MANUAL DIFF NO %
[2016-10-28 06:22] LABS: BUN (BLOOD UREA NITROGEN) 17 MG/DL (6-23); CALCIUM, SERUM 8.4 MG/DL (8.5-10.4); CHLORIDE, SERUM 104 MMOL/L (96-112); CO2 (CARBON DIOXIDE) 28 MMOL/L (24-34); CREATININE 0.96 MG/DL (0.70-1.30); GFR AFRICAN AMERICAN 91 ML/MIN (>=60); GFR NON AFRICAN AMERICAN 79 ML/MIN (>=60); GLUCOSE, SERUM 274 MG/DL (60-99); POTASSIUM, SERUM 3.9 MMOL/L (3.5-5.3); SODIUM, SERUM 141 MMOL/L (135-148)
[2016-10-28 19:22] LABS: BE (BASE EXCESS) -1.7 MEQ/L (0 +/- 2.5); CARBOXYHEMOGLOBIN 0.5 % (0-3); HCO3 (ACTUAL BICARBONATE) 22.9 MEQ/L (23-27); INSTRUMENT SERIAL # 11843; METHEMOGLOBIN 0.4 % (0-3); MODE SIMV; O2 CONTENT 18.7 VOL% (18-24); OPERATOR ID 32193; PCO2 (CO2 TENSION) 38 MMHG (35-45); PO2 (O2 TENSION) 301 MMHG (79-93); SAMPLE Arterial; TIDAL VOLUME 700 ML; pH 7.39 (7.37-7.43)
[2016-10-28 19:42] LABS: HEMATOCRIT 37.7 % (40.0-51.0); HEMOGLOBIN 12.3 g/dL (13.6-17.8)
[2016-10-28 19:49] LABS: PARTIAL THROMBO TIME 32.9 SEC (22.5-37.2)
[2016-10-28 19:50] LABS: INTERNATIONAL NORMAL RATI 1.5 UNITS (-)
[2016-10-28 19:51] LABS: BUN (BLOOD UREA NITROGEN) 18 MG/DL (6-23); CHLORIDE, SERUM 111 MMOL/L (96-112); CO2 (CARBON DIOXIDE) 26 MMOL/L (24-34); GFR AFRICAN AMERICAN 87 ML/MIN (>=60); GFR NON AFRICAN AMERICAN 75 ML/MIN (>=60); SODIUM, SERUM 147 MMOL/L (135-148)
[2016-10-28 19:52] LABS: GLUCOSE, SERUM 128 MG/DL (60-99); POTASSIUM, SERUM 4.3 MMOL/L (3.5-5.3)
[2016-10-28 19:53] LABS: PLATELET COUNT 91 10/3/uL (150-400)
[2016-10-28 20:05] LABS: PROTIME (NOT ORD) 17.7 SEC (12.0-14.5)
[2016-10-29 00:54] LABS: HEMOGLOBIN 14.1 g/dL (13.6-17.8)
[2016-10-29 00:55] LABS: HEMATOCRIT 42.2 % (40.0-51.0)
[2016-10-29 01:02] LABS: POTASSIUM, SERUM 4.5 MMOL/L (3.5-5.3)
[2016-10-29 01:46] LABS: BE (BASE EXCESS) -0.3 MEQ/L (0 +/- 2.5); CARBOXYHEMOGLOBIN 0.9 % (0-3); DEVICE NC; HCO3 (ACTUAL BICARBONATE) 24.3 MEQ/L (23-27); HEMOBLOGIN CONTENT 14.1 G/DL (14-18); INSTRUMENT SERIAL # 11843; METHEMOGLOBIN 0.3 % (0-3); O2 CONTENT 18.2 VOL% (18-24); OPERATOR ID 32193; PCO2 (CO2 TENSION) 40 MMHG (35-45); PO2 (O2 TENSION) 65 MMHG (79-93); SAMPLE Arterial
[2016-10-29 04:30] LABS: BASOPHILS 0.1 %; BASOPHILS ABSOLUTE 0.01 10/3/uL (0.0-0.16); EOSINOPHILS 0 %; HEMOGLOBIN 12.3 g/dL (13.6-17.8); IMMATURE GRANULOCYTES 0.3 %; IMMATURE GRANULOCYTES ABSOLUTE 0.03 10/3/uL (0.0-0.11); LYMPHOCYTES 6.6 %; LYMPHOCYTES ABSOLUTE 0.74 10/3/uL (0.67-4.30); MEAN CORPUS HGB CONC 32.7 g/dL (32.0-36.0); MEAN CORPUSCULAR HEMOGLOB 30.6 pg (26.0-34.0); MEAN CORPUSCULAR VOLUME 93.5 fL (80-100); MEAN PLATELET VOLUME 12.2 fL (9.2-13.0); MONOCYTES ABSOLUTE 0.67 10/3/uL (0.21-1.20); NEUTROPHILS ABSOLUTE 9.76 10/3/uL (2.02-8.40); PLATELET COUNT 85 10/3/uL (150-400); RBC DISTRIBUTION WIDTH 13.1 % (12.0-16.0); RED CELL COUNT 4.02 10/6/uL (4.7-6.1)
[2016-10-29 04:34] LABS: HEMATOCRIT 37.6 % (40.0-51.0); MANUAL DIFF NO %; WHITE BLOOD CELLS 11.2 10/3/uL (4.5-10.5)
[2016-10-29 04:43] LABS: BUN (BLOOD UREA NITROGEN) 16 MG/DL (6-23); CALCIUM, SERUM 7.7 MG/DL (8.5-10.4); CHLORIDE, SERUM 114 MMOL/L (96-112); CO2 (CARBON DIOXIDE) 26 MMOL/L (24-34); CREATININE 0.91 MG/DL (0.70-1.30); GFR AFRICAN AMERICAN 97 ML/MIN (>=60); GFR NON AFRICAN AMERICAN 84 ML/MIN (>=60); GLUCOSE, SERUM 131 MG/DL (60-99); INTERNATIONAL NORMAL RATI 1.2 UNITS (-); POTASSIUM, SERUM 4.3 MMOL/L (3.5-5.3); SODIUM, SERUM 149 MMOL/L (135-148)
[2016-10-29 04:46] LABS: PROTIME (NOT ORD) 14.7 SEC (12.0-14.5)
[2016-10-29 16:48] LABS: HEMATOCRIT 33.1 % (40.0-51.0); HEMOGLOBIN 10.8 g/dL (13.6-17.8)
[2016-10-29 16:53] LABS: POTASSIUM, SERUM 4.5 MMOL/L (3.5-5.3)
[2016-10-29 17:17] LABS: CALCIUM, SERUM 7.8 MG/DL (8.5-10.4); CHLORIDE, SERUM 108 MMOL/L (96-112); CO2 (CARBON DIOXIDE) 24 MMOL/L (24-34); CREATININE 0.86 MG/DL (0.70-1.30); GFR AFRICAN AMERICAN 100 ML/MIN (>=60); GFR NON AFRICAN AMERICAN 87 ML/MIN (>=60); SODIUM, SERUM 143 MMOL/L (135-148)
[2016-10-29 17:18] LABS: BUN (BLOOD UREA NITROGEN) 20 MG/DL (6-23); GLUCOSE, SERUM 279 MG/DL (60-99)
[2016-10-30 03:28] LABS: BASOPHILS 0.2 %; BASOPHILS ABSOLUTE 0.02 10/3/uL (0.0-0.16); EOSINOPHILS 0 %; HEMATOCRIT 31.4 % (40.0-51.0); HEMOGLOBIN 10.4 g/dL (13.6-17.8); IMMATURE GRANULOCYTES 0.3 %; IMMATURE GRANULOCYTES ABSOLUTE 0.03 10/3/uL (0.0-0.11); LYMPHOCYTES 11.1 %; LYMPHOCYTES ABSOLUTE 1.11 10/3/uL (0.67-4.30); MANUAL DIFF NO %; MEAN CORPUS HGB CONC 33.1 g/dL (32.0-36.0); MEAN CORPUSCULAR VOLUME 93.7 fL (80-100); MEAN PLATELET VOLUME 12.1 fL (9.2-13.0); MONOCYTES 10.4 %; MONOCYTES ABSOLUTE 1.04 10/3/uL (0.21-1.20); NEUTROPHILS ABSOLUTE 7.78 10/3/uL (2.02-8.40); PLATELET COUNT 81 10/3/uL (150-400); RBC DISTRIBUTION WIDTH 13.5 % (12.0-16.0); RED CELL COUNT 3.35 10/6/uL (4.7-6.1)
[2016-10-30 03:41] LABS: BUN (BLOOD UREA NITROGEN) 17 MG/DL (6-23); CHLORIDE, SERUM 107 MMOL/L (96-112); CO2 (CARBON DIOXIDE) 26 MMOL/L (24-34); GFR AFRICAN AMERICAN 109 ML/MIN (>=60); GFR NON AFRICAN AMERICAN 94 ML/MIN (>=60); POTASSIUM, SERUM 4.5 MMOL/L (3.5-5.3); SODIUM, SERUM 143 MMOL/L (135-148)
[2016-10-30 03:43] LABS: GLUCOSE, SERUM 156 MG/DL (60-99)
[2016-10-31 05:49] LABS: BASOPHILS 0.1 %; BASOPHILS ABSOLUTE 0.01 10/3/uL (0.0-0.16); EOSINOPHILS 0 %; HEMATOCRIT 31.7 % (40.0-51.0); HEMOGLOBIN 10.5 g/dL (13.6-17.8); IMMATURE GRANULOCYTES 0.6 %; IMMATURE GRANULOCYTES ABSOLUTE 0.06 10/3/uL (0.0-0.11); LYMPHOCYTES 13.7 %; LYMPHOCYTES ABSOLUTE 1.36 10/3/uL (0.67-4.30); MEAN CORPUS HGB CONC 33.1 g/dL (32.0-36.0); MEAN CORPUSCULAR HEMOGLOB 30.9 pg (26.0-34.0); MEAN CORPUSCULAR VOLUME 93.2 fL (80-100); MEAN PLATELET VOLUME 12.7 fL (9.2-13.0); MONOCYTES 9.7 %; MONOCYTES ABSOLUTE 0.96 10/3/uL (0.21-1.20); NEUTROPHILS 75.9 %; NEUTROPHILS ABSOLUTE 7.52 10/3/uL (2.02-8.40); PLATELET COUNT 97 10/3/uL (150-400); RBC DISTRIBUTION WIDTH 13.3 % (12.0-16.0); WHITE BLOOD CELLS 9.9 10/3/uL (4.5-10.5)
[2016-10-31 05:57] LABS: MANUAL DIFF NO %
[2016-10-31 06:12] LABS: BUN (BLOOD UREA NITROGEN) 18 MG/DL (6-23); CALCIUM, SERUM 8.2 MG/DL (8.5-10.4); CHLORIDE, SERUM 103 MMOL/L (96-112); CO2 (CARBON DIOXIDE) 28 MMOL/L (24-34); CREATININE 0.68 MG/DL (0.70-1.30); GFR AFRICAN AMERICAN 111 ML/MIN (>=60); GFR NON AFRICAN AMERICAN 95 ML/MIN (>=60); GLUCOSE, SERUM 158 MG/DL (60-99); PHOSPHORUS, SERUM 1.6 MG/DL (2.5-4.5); POTASSIUM, SERUM 4.1 MMOL/L (3.5-5.3); SODIUM, SERUM 139 MMOL/L (135-148)
[2016-11-01 04:36] LABS: BASOPHILS 0.3 %; BASOPHILS ABSOLUTE 0.02 10/3/uL (0.0-0.16); EOSINOPHILS 0 %; IMMATURE GRANULOCYTES 0.7 %; IMMATURE GRANULOCYTES ABSOLUTE 0.05 10/3/uL (0.0-0.11); LYMPHOCYTES 15.5 %; LYMPHOCYTES ABSOLUTE 1.18 10/3/uL (0.67-4.30); MANUAL DIFF NO %; MEAN CORPUS HGB CONC 33.3 g/dL (32.0-36.0); MEAN CORPUSCULAR HEMOGLOB 31.2 pg (26.0-34.0); MEAN CORPUSCULAR VOLUME 93.5 fL (80-100); MEAN PLATELET VOLUME 11.9 fL (9.2-13.0); MONOCYTES 10.4 %; MONOCYTES ABSOLUTE 0.79 10/3/uL (0.21-1.20); NEUTROPHILS 73.1 %; NEUTROPHILS ABSOLUTE 5.55 10/3/uL (2.02-8.40); PLATELET COUNT 123 10/3/uL (150-400); RBC DISTRIBUTION WIDTH 13.3 % (12.0-16.0); RED CELL COUNT 3.21 10/6/uL (4.7-6.1); WHITE BLOOD CELLS 7.6 10/3/uL (4.5-10.5)
[2016-11-01 04:42] LABS: INTERNATIONAL NORMAL RATI 1.5 UNITS (-)
[2016-11-01 04:43] LABS: PROTIME (NOT ORD) 18.1 SEC (12.0-14.5)
[2016-11-01 04:48] LABS: BUN (BLOOD UREA NITROGEN) 16 MG/DL (6-23); CALCIUM, SERUM 7.7 MG/DL (8.5-10.4); CHLORIDE, SERUM 101 MMOL/L (96-112); CO2 (CARBON DIOXIDE) 31 MMOL/L (24-34); CREATININE 0.78 MG/DL (0.70-1.30); GFR AFRICAN AMERICAN 105 ML/MIN (>=60); GFR NON AFRICAN AMERICAN 90 ML/MIN (>=60); GLUCOSE, SERUM 182 MG/DL (60-99); POTASSIUM, SERUM 3.8 MMOL/L (3.5-5.3); SODIUM, SERUM 140 MMOL/L (135-148)
[2016-11-01 04:59] LABS: PHOSPHORUS, SERUM 2.7 MG/DL (2.5-4.5)
[2016-11-02 06:11] LABS: HEMATOCRIT 31.1 % (40.0-51.0); HEMOGLOBIN 10.2 g/dL (13.6-17.8); MEAN CORPUS HGB CONC 32.8 g/dL (32.0-36.0); MEAN CORPUSCULAR HEMOGLOB 30.9 pg (26.0-34.0); MEAN CORPUSCULAR VOLUME 94.2 fL (80-100); MEAN PLATELET VOLUME 10.9 fL (9.2-13.0); RBC DISTRIBUTION WIDTH 13.4 % (12.0-16.0); WHITE BLOOD CELLS 8.8 10/3/uL (4.5-10.5)
[2016-11-02 06:12] LABS: MANUAL DIFF YES %; PLATELET COUNT 198 10/3/uL (150-400)
[2016-11-02 06:31] LABS: BUN (BLOOD UREA NITROGEN) 16 MG/DL (6-23); CALCIUM, SERUM 7.9 MG/DL (8.5-10.4); CHLORIDE, SERUM 99 MMOL/L (96-112); CO2 (CARBON DIOXIDE) 32 MMOL/L (24-34); CREATININE 0.67 MG/DL (0.70-1.30); GFR AFRICAN AMERICAN 111 ML/MIN (>=60); GFR NON AFRICAN AMERICAN 96 ML/MIN (>=60); GLUCOSE, SERUM 174 MG/DL (60-99); POTASSIUM, SERUM 3.7 MMOL/L (3.5-5.3); SODIUM, SERUM 139 MMOL/L (135-148)
[2016-11-02 06:33] LABS: EOSINOPHILS 1 %; EOSINOPHILS ABSOLUTE (CALC) 0.09 10/3/uL (0.0-0.53); IMMATURE GRANS ABSOLUTE (CALC) 0.09 10/3/uL (0.0-0.11); LYMPHOCYTES 20 %; LYMPHOCYTES ABSOLUTE (CALC) 1.76 10/3/uL (0.67-4.30); METAMYELOCYTES 1 %; MONOCYTES 2 %; MONOCYTES ABSOLUTE (CALC) 0.18 10/3/uL (0.21-1.20); NEUTROPHILS ABSOLUTE (CALC) 6.69 10/3/uL (2.02-8.40); PLATELET ESTIMATE ADQ (ADEQUATE); SEGMENTED NEUTROPHIL (0) 76 %; TOTAL NUCLEATED CELLS 100
[2016-11-02 06:34] LABS: POLYCHROMASIA 1+ (2-5/OIF) (0-1/OIF); TOXIC GRANULATION 1+
[2016-11-02 06:58] LABS: INTERNATIONAL NORMAL RATI 4.7 UNITS (-)
[2016-11-02 07:15] LABS: PROTIME (NOT ORD) 43.8 SEC (12.0-14.5)
[2016-11-03 06:26] LABS: BASOPHILS 0.1 %; BASOPHILS ABSOLUTE 0.01 10/3/uL (0.0-0.16); EOSINOPHILS 0.9 %; EOSINOPHILS ABSOLUTE 0.08 10/3/uL (0.0-0.53); HEMATOCRIT 30.5 % (40.0-51.0); HEMOGLOBIN 9.9 g/dL (13.6-17.8); IMMATURE GRANULOCYTES 0.9 %; IMMATURE GRANULOCYTES ABSOLUTE 0.08 10/3/uL (0.0-0.11); LYMPHOCYTES 11.3 %; LYMPHOCYTES ABSOLUTE 1.02 10/3/uL (0.67-4.30); MEAN CORPUS HGB CONC 32.5 g/dL (32.0-36.0); MEAN CORPUSCULAR HEMOGLOB 30.7 pg (26.0-34.0); MEAN CORPUSCULAR VOLUME 94.7 fL (80-100); MEAN PLATELET VOLUME 10.4 fL (9.2-13.0); MONOCYTES 12.3 %; MONOCYTES ABSOLUTE 1.11 10/3/uL (0.21-1.20); NEUTROPHILS 74.5 %; NEUTROPHILS ABSOLUTE 6.71 10/3/uL (2.02-8.40); RBC DISTRIBUTION WIDTH 13.6 % (12.0-16.0); RED CELL COUNT 3.22 10/6/uL (4.7-6.1)
[2016-11-03 06:29] LABS: MANUAL DIFF NO %; PLATELET COUNT 264 10/3/uL (150-400)
[2016-11-03 06:31] LABS: INTERNATIONAL NORMAL RATI 5.2 UNITS (-); PROTIME (NOT ORD) 47.3 SEC (12.0-14.5)
[2016-11-03 06:45] LABS: BUN (BLOOD UREA NITROGEN) 15 MG/DL (6-23); CHLORIDE, SERUM 101 MMOL/L (96-112); CO2 (CARBON DIOXIDE) 32 MMOL/L (24-34); GFR AFRICAN AMERICAN 109 ML/MIN (>=60); GFR NON AFRICAN AMERICAN 94 ML/MIN (>=60); GLUCOSE, SERUM 192 MG/DL (60-99); POTASSIUM, SERUM 4.1 MMOL/L (3.5-5.3); SODIUM, SERUM 140 MMOL/L (135-148)
[2016-11-04 06:15] LABS: BASOPHILS 0.1 %; BASOPHILS ABSOLUTE 0.01 10/3/uL (0.0-0.16); EOSINOPHILS 0.9 %; EOSINOPHILS ABSOLUTE 0.09 10/3/uL (0.0-0.53); HEMATOCRIT 30.1 % (40.0-51.0); IMMATURE GRANULOCYTES 0.6 %; IMMATURE GRANULOCYTES ABSOLUTE 0.06 10/3/uL (0.0-0.11); LYMPHOCYTES 12.1 %; LYMPHOCYTES ABSOLUTE 1.16 10/3/uL (0.67-4.30); MEAN CORPUS HGB CONC 33.2 g/dL (32.0-36.0); MEAN CORPUSCULAR HEMOGLOB 31.6 pg (26.0-34.0); MEAN CORPUSCULAR VOLUME 95.3 fL (80-100); MONOCYTES 12.9 %; MONOCYTES ABSOLUTE 1.23 10/3/uL (0.21-1.20); NEUTROPHILS 73.4 %; PLATELET COUNT 281 10/3/uL (150-400); RBC DISTRIBUTION WIDTH 13.9 % (12.0-16.0); RED CELL COUNT 3.16 10/6/uL (4.7-6.1); WHITE BLOOD CELLS 9.6 10/3/uL (4.5-10.5)
[2016-11-04 06:20] LABS: INTERNATIONAL NORMAL RATI 4.3 UNITS (-); PROTIME (NOT ORD) 40.7 SEC (12.0-14.5)
[2016-11-04 06:21] LABS: MANUAL DIFF NO %
[2016-11-04 06:27] LABS: BUN (BLOOD UREA NITROGEN) 14 MG/DL (6-23); CALCIUM, SERUM 7.7 MG/DL (8.5-10.4); CHLORIDE, SERUM 99 MMOL/L (96-112); CO2 (CARBON DIOXIDE) 34 MMOL/L (24-34); CREATININE 0.76 MG/DL (0.70-1.30); GFR AFRICAN AMERICAN 106 ML/MIN (>=60); GFR NON AFRICAN AMERICAN 91 ML/MIN (>=60); SODIUM, SERUM 137 MMOL/L (135-148)
[2016-11-04 06:28] LABS: GLUCOSE, SERUM 138 MG/DL (60-99)
[2016-11-04] MEDS ORDERED: CORDARONE PO (11:24)
[2016-11-04] MEDS ORDERED: LIPITOR40 PO (11:24)
[2016-11-04] MEDS ORDERED: ASAB PO (11:24)
[2016-11-04] MEDS ORDERED: L20 PO (11:25)
[2016-11-04] MEDS ORDERED: HABIT21 TOP (11:27)
[2016-11-04] MEDS ORDERED: PRIN2.5 PO (11:27)
[2016-11-04] MEDS ORDERED: ZINC220C PO (11:28)
[2016-11-04] MEDS ORDERED: BREO ELLIPTA 21 EACH INH ×2 (11:29→12:12)
[2016-11-04] MEDS ORDERED: SPIRIVA RESPIMAT INH (11:29)
[2016-11-04] MEDS ORDERED: PROVHFA INH (11:30)
== END 2016-11-04 13:22 | disposition home health service (06) | DRG 216 ==
LOC: CDU2 22:46 → 2SO 10-24 10:50 → 6NO 10-25 21:31 → SDC/OF 10-28 14:22 → CVICU 10-28 17:37 → 5NO 10-30 12:49
PROVIDERS: Hospitalist; Internal Medicine; Internal Medicine Cardiovascular Disease; Nurse Practitioner Family; Thoracic Surgery (Cardiothoracic Vascular Surgery)
PROC: 4A023N7 Measurement of Cardiac Sampling and Pressure, Left Heart, Percutaneous Approach (ICD-10-PCS; principal; 2016-10-25)
PROC: B2151ZZ Fluoroscopy of Left Heart using Low Osmolar Contrast (ICD-10-PCS; 2016-10-25)
PROC: B2111ZZ Fluoroscopy of Multiple Coronary Arteries using Low Osmolar Contrast (ICD-10-PCS; 2016-10-25)
PROC: 021209W Bypass Coronary Artery, Three Arteries from Aorta with Autologous Venous Tissue, Open Approach (ICD-10-PCS; 2016-10-28)
PROC: 06BP0ZZ Excision of Right Saphenous Vein, Open Approach (ICD-10-PCS; 2016-10-28)
PROC: 5A1221Z Performance of Cardiac Output, Continuous (ICD-10-PCS; 2016-10-28)
PROC: B246ZZ4 Ultrasonography of Right and Left Heart, Transesophageal (ICD-10-PCS; 2016-10-28)
PROC: 02B70ZK Excision of Left Atrial Appendage, Open Approach (ICD-10-PCS; 2016-10-28)
PROC: 02UG0JZ Supplement Mitral Valve with Synthetic Substitute, Open Approach (ICD-10-PCS; 2016-10-28 16:30)
PROC: 02100Z9 Bypass Coronary Artery, One Artery from Left Internal Mammary, Open Approach (ICD-10-PCS; 2016-10-28 16:30)
DX: I21.4 Non-ST elevation (NSTEMI) myocardial infarction (principal); I50.21 Acute systolic (congestive) heart failure; E87.0 Hyperosmolality and hypernatremia; J96.11 Chronic respiratory failure with hypoxia; J44.1 Chronic obstructive pulmonary disease with (acute) exacerbation; B02.9 Zoster without complications; I48.91 Unspecified atrial fibrillation; E11.9 Type 2 diabetes mellitus without complications; I65.21 Occlusion and stenosis of right carotid artery; F17.210 Nicotine dependence, cigarettes, uncomplicated; E78.5 Hyperlipidemia, unspecified; Z88.2 Allergy status to sulfonamides; Z82.49 Family history of ischemic heart disease and other diseases of the circulatory system; I11.0 Hypertensive heart disease with heart failure; I34.0 Nonrheumatic mitral (valve) insufficiency; E03.9 Hypothyroidism, unspecified; Z79.4 Long term (current) use of insulin
CPT/HCPCS: 36415; 36600; 70450; 71010; 71020; 71250; 80048; 80053; 80061; 81001; 82272; 82330; 82803; 82805; 82947; 82962; 83036; 83540; 83735; 83880; 84100; 84132; 84145; 84295; 84439; 84443; 84460; 84481; 84484; 85014; 85018; 85025; 85049; 85347; 85610; 85730; 86850; 86900; 86901; 86920; 87641; 88304; 93005; 93312; 93320; 93325; 93459; 93880; 94002; 94010; 94640; 94660; 94770; 97161-GP; 97166-GO; 97530-GP; 99152; A9270-GY; C1713; C1725; C1769; C1887; C1894; C8929; J0690; J1644; J1940; J1956; J2150; J2250; J2370; J2440; J2720; J2795; J2930; J3010; J3475; J3480; P9045; P9047; Q9957; Q9967

== ENCOUNTER 2016-11-11 00:36 | Inpatient (IN) | payer BC ==
--- NOTE | ~2016-11-11 | HP ---
History And Physical [id number] [place]. [address] NAME: CRISTINA VILLEDA : 43 STATUS : ADM IN [facility]#: [id number] AGE: 71 ADM/REG DATE : 11/11/16 MR#: [id number] REPORT SERV DATE: 11/11/16 DICTATED BY: KIM TO DATE: 11/11/16 REPORT STATUS : Draft TRANSCRIBED BY: MODL DATE: 11/11/16 DATE OF ADMISSION: 11/11/2016 Pulmonary And Critical Care Medicine Admitting History And Physical REASON FOR ADMISSION: Acute hypoxemic respiratory failure. HISTORY OF PRESENT ILLNESS: Mr. Villeda is a 71-year-old gentleman with advanced stage COPD who was actually recently admitted to our facility from 10/23/2016 to 11/04/2016 for non-ST elevation myocardial infarction. During the hospitalization, he did undergo a four-vessel coronary artery bypass grafting by Dr. El (10/28/2016). He has a chronic systolic heart failure with an EF of approximately 20%. In addition, he also has severe oxygen- dependent COPD (3 L of oxygen at home). He reports excellent compliance with his home medications and nebulizer regimens. He has a history of paroxysmal atrial fibrillation for which he is supposed to be taking Coumadin; type 2 diabetes mellitus; history of MVR, status post mitral valve repair during his bypass surgery; prior carotid endarterectomy; hypothyroidism; and longstanding tobacco abuse. The patient presented [facility] complaining of shortness of breath. He was noted to be wheezing. He was treated with albuterol and Lasix and Dr. Byrd, who was the emergency provider in [facility], referred him to our facility for higher level of care as he has just recently been discharged home following his prolonged hospitalization. In reviewing Dr. Correa's discharge summary, it appears that the patient was urged to go to cardiac rehab in advance of going home, but he was not in agreement. On arrival [facility], per EMS he is on additional supplemental oxygen with some audible wheezing and crackles at the bases. He denies significant sputum production. However, he does endorse some dyspnea on exertion over the last couple of days. He has been trying to stop smoking. ADDITIONAL PAST MEDICAL HISTORY: COPD as noted above; type 2 diabetes mellitus; tobacco dependency; remote herpes zoster infection; peripheral arterial disease; coronary artery disease with bypass grafting as above; mitral valve regurgitation, status post mitral valve repair as above; essential hypertension; dyslipidemia; chronic peripheral neuropathy, felt likely secondary to peripheral arterial disease and diabetes and hypothyroidism, on Synthroid. PAST SURGICAL HISTORY: In addition to coronary bypass grafting and mitral valve repair includes cholecystectomy, hemorrhoidectomy, and right carotid endarterectomy for symptomatic carotid stenosis. 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 He previously worked in a [employer], long-standing tobacco abuser. Denies much alcohol and flatly denies illicit drug use. His daughter is his primary caregiver. He also has a girlfriend. FAMILY HISTORY: Includes congestive heart failure as well as coronary disease. History And Physical [address] [address] NAME: CRISTINA VILLEDA : 43 STATUS : ADM IN [facility]#: [id number] AGE: 71 ADM/REG DATE : 11/11/16 MR#: [id number] REPORT SERV DATE: 11/11/16 DICTATED BY: KIM TO DATE: 11/11/16 REPORT STATUS : Draft TRANSCRIBED BY: KIM DATE: 11/11/16 ALLERGIES: SULFA. MEDICATIONS: At the time of discharge from the hospital on 11/04/2016 included aspirin 81 mg a day, Lipitor 40 mg a day, amiodarone 200 mg twice a day, Lasix 20 mg a day, Neurontin 400 mg three times a day, glimepiride 1 mg daily, levothyroxine 150 mcg daily, lisinopril 2.5 mg a day, Toprol-XL 50 mg p.o. b.i.d., transdermal nicotine 21 mg, trazodone 50-100 mg nightly at bedtime, Breo Ellipta 200/25 mg one puff daily, albuterol 2.5 mg q.4 hours p.r.n. shortness of breath and Spiriva Respimat 2.5 mcg 2 puffs once daily, and albuterol multidose inhaler p.r.n. shortness of breath. ADVANCED DIRECTIVES/LIVING WILL: None. REVIEW OF SYSTEMS: Complete and was negative except for those points described above in the history of present illness section of the dictation. PHYSICAL EXAMINATION: GENERAL: The patient is a male who is slightly confused but is oriented to self, date, and year. HEENT: Head is atraumatic and normocephalic. Pupils are equal, round, and reactive to light. Extraocular movements are intact. Ears, nose, and mouth are unremarkable. He has fair oral dentition and moist oral mucosa. NECK: Supple without significant JVD, however, visualization of the jugular pulsation is limited by copious soft tissue surrounding the neck. HEART: S1, S2. Brisk cap refill in distal extremities. He has a healing sternotomy incision in his anterior chest without evidence of erythema or drainage from the incision site. LUNGS: With basilar crackles and end expiratory wheezing bilaterally. ABDOMEN: Soft, nontender, nondistended with positive bowel sounds in all four quadrants, and no appreciable peritoneal signs. He is moderately obese. : A Dorsey catheter is indwelling and draining a translucent yellow urine. He has normal external male genitalia. LYMPHATIC EXAM: Unremarkable. We have no palpable adenopathy. SKIN: Warm and dry. Somewhat pale. He has a few areas of punctate excoriation on the lower extremities but minimal pitting edema. His feet are somewhat cool to touch. NEUROLOGIC: Grossly intact except for mild confusion with regard to location (the patient has been moved around several times today). PSYCHIATRIC EXAM: Otherwise appropriate to situation. LABORATORY STUDIES: Personal review of diagnostic workup completed at [facility] on 11/10/2016. Coags are unremarkable. Of note, his INR is 1.0 (he has evidently not been taking his Coumadin). White blood cell count is 10.3, hemoglobin and hematocrit are mildly depressed at 9.7, 33.3. He does have microcytosis at MCV of 103.1 with no known history of B12 deficiency from what I can see of the records. Platelet count is adequate at 335. He has a neutrophil predominant differential. A manual differential was not performed at the outside hospital. Metabolic profile shows normal electrolytes. CO2 level is elevated at 37 consistent with chronic CO2 retention secondary to COPD. BUN and creatinine are at his History And Physical [facility] [address] [place]. [address] NAME: CRISTINA VILLEDA : 43 STATUS : ADM IN [facility]#: [id number] AGE: 71 ADM/REG DATE : 11/11/16 MR#: [id number] REPORT SERV DATE: 11/11/16 DICTATED BY: KIM TO DATE: 11/11/16 REPORT STATUS : Draft TRANSCRIBED BY: MODL DATE: 11/11/16 baseline of 16 and 0.8. He is normoglycemic and mildly hypoalbuminemic. Transaminases are unremarkable, and he has a normal anion gap. Troponin level is mildly elevated at 0.13, and an ABG showed a pH of 7.33, CO2 of 72, O2 level of 94, and saturation 98% with a mildly elevated carboxyhemoglobin level at 2%. Base excess was 10 and a calculated bicarb was 33.6. The chest x-ray was evidently shot at the outside facility but is not available and no disc was sent with the patient according to EMS. There is no EKG available in the documentation packet from the outside hospital. However, documentation states that it was performed at 11/10/2016 at 1640 hours with a rate of 76 beats per minute, sinus rhythm, normal axis, nonspecific ST segments with no ST elevation or depression. Chartmax was reviewed and H and P as well as several interim discharge summaries and consultation reports, operative report from his surgery performed on 10/28/2016, and previous progress notes and echocardiogram reports have been reviewed personally by me this evening at the bedside. IMPRESSION: 1. Acute hypoxemic respiratory failure. 2. Coronary artery disease with known ischemic cardiomyopathy/systolic congestive heart failure with acute on chronic exacerbation. 3. Chronic obstructive lung disease with chronic hypoxemic respiratory failure requiring 2- 3 L of home oxygen with evidence of acute exacerbation of chronic obstructive pulmonary disease on admission tonight with associated bronchospasm/wheezing. 4. Volume overload. 5. Question of pneumonia. 6. Macrocytic anemia, superimposed on to anemia of chronic disease. 7. History of paroxysmal atrial fibrillation with non-adherence with warfarin therapy. 8. Mild troponinemia with history of recent non-ST elevation myocardial infarction. 9. Chronic CO2 retention. 10.History of longstanding tobacco abuse. 11.History of mitral valve regurgitation, status post repair. 12.History of carotid stenosis status post right carotid endarterectomy. 13.History of diabetes mellitus with mild hyperglycemia in the setting of acute illness. 14.Peripheral arterial disease. 15.Dyslipidemia. 16.Peripheral neuropathy secondary to diabetes and pelvic inflammatory disease. 17.Hypothyroidism, on Synthroid. 18.Mild delirium. PLAN: Mr. Villeda has been admitted to the CVICU this evening for close monitoring. We will proceed with gentle diuresis. Administration of broad-spectrum antibiotics to include HCAP coverage due to his recent hospitalization and aggressive bronchodilator therapy. We will send a full panel of cultures. Check procalcitonin level and a BNP and cover him with empiric steroids. We will need to tailor his therapy once his clinical picture is more clear pending receipt of further data tomorrow morning and in the coming days. We will follow up on EKG and perform a surface echo in light of his recent cardiac surgery with acute decompensation this evening, resume his home medications when appropriate and cover him with DVT chemoprophylaxis. He will undergo screening for B vitamin deficiency in the History And Physical [address] [address] NAME: CRISTINA VILLEDA : 43 STATUS : ADM IN [facility]#: [id number] AGE: 71 ADM/REG DATE : 11/11/16 MR#: [id number] REPORT SERV DATE: 11/11/16 DICTATED BY: KIM TO DATE: 11/11/16 REPORT STATUS : Draft TRANSCRIBED BY: MODLuis DATE: 11/11/16 setting of macrocytosis noted on CBC at [facility], and we will need to clarify plan for ongoing anticoagulation for paroxysmal atrial fibrillation as he is apparently not currently receiving Coumadin therapy. We will titrate supplemental oxygen as needed to maintain oxygen saturation between 89% and 94%, which will be achieved with Vapotherm tonight and continue to adjust his regimen as clinically warranted. He is a full code. His daughter was not available at the bedside this evening but was updated by phone. KIESHA/KIM Kim To MD / [id number] CC: Kmi To MD
--- NOTE | ~2016-11-11 | CN ---
Consultation Report [id number] [facility] [place]. [address] NAME: CRISTINA CLEMENT : 43 STATUS : ADM IN [facility]#: [id number] AGE: 71 ADM/REG DATE : 11/11/16 MR#: [id number] REPORT SERV DATE: 11/11/16 DICTATED BY: RUFUS PAIGE DATE: 11/11/16 REPORT STATUS : Draft TRANSCRIBED BY: MODL DATE: 11/11/16 CARDIOVASCULAR CONSULTATION DATE OF CONSULTATION: CHIEF COMPLAINT: Atrial fibrillation. HISTORY OF PRESENT ILLNESS: This is a 71-year-old patient of my partner, Dr. Patricia Castillo. He has a history of coronary artery disease with previous bypass surgery on 10/28/2016. He had a mitral valve repair at that time. He was discharged home about a week ago. Preop EF 20%, subsequent EF 50%. He has a longstanding history of severe oxygen-dependent COPD. He presented to [facility] with increased shortness of breath, was found to be somewhat volume overload and in atrial fibrillation with rapid ventricular rate. IV amiodarone was started. He required some pressors. He had some periods of second-degree AV block/two-to-one AV block. His respiratory status is improved with diuresis. Echocardiogram shows EF up to 50%. He currently is in sinus rhythm at 70 beats per minute. PAST MEDICAL HISTORY: 1. Coronary disease with previous coronary artery bypass grafting. 2. Mitral valve regurgitation, status post mitral valve repair. 3. Severe COPD. 4. Hypertension. 5. Hypercholesterolemia. 6. Low ejection fraction. 7. Paroxysmal atrial fibrillation. SOCIAL HISTORY: He is a former smoker. He does not drink alcohol. FAMILY HISTORY: There is no family history of early coronary artery disease. REVIEW OF SYSTEMS: A complete review of systems was obtained, which is negative in detail except as mentioned above in the HPI. ALLERGIES: SULFA. MEDICATIONS: Include albuterol inhaler, amiodarone 200 mg twice a day, aspirin 81 mg daily, Lipitor 40 mg daily, fluticasone inhaler, Lasix 20 mg daily, Neurontin 400 mg three times a day, Amaryl, hydrocodone, Synthroid, Prinivil 2.5 mg daily, Toprol-XL 25 mg twice a day, Consultation Report [id number] [facility] [place]. [address] NAME: CRISTINA CLEMENT : 43 STATUS : ADM IN PAT#: [id number] AGE: 71 ADM/REG DATE : 11/11/16 MR#: [id number] REPORT SERV DATE: 11/11/16 DICTATED BY: RUFUS PAIGE DATE: 11/11/16 REPORT STATUS : Draft TRANSCRIBED BY: KIM DATE: 11/11/16 nicotine patch, Zantac, Spiriva, Desyrel, and zinc. PHYSICAL EXAMINATION: VITAL SIGNS: Blood pressure 92/50, heart rate of 80 and regular, and respiratory rate of 14. GENERAL: Comfortable in no acute distress. HEENT: Anicteric. No xanthelasma. Lips without cyanosis. NECK: No JVD. Carotids 2+ and symmetric. No carotid bruits. LUNGS: CTA bilaterally. No wheezes or rhonchi. No accessory muscle use. COR: RRR. Normally placed PMI. Normal S1 and S2. No murmurs, rubs or gallops. ABD: Soft, nontender, nondistended. Normal bowel sounds. No abdominal bruits. EXT: No clubbing, cyanosis or edema 2+ and symmetric distal pulses. SKIN: Warm. Dry. No venous stasis changes. MS: No kyphosis. NEURO/PSYCH: Oriented x3. No anxiety or depression. LABORATORY STUDIES: Sodium of 140, potassium of 3.7, and creatinine of 0.9. White count of 15.7 and hematocrit of 32. INR of 1.3. Troponin of 0.07 and BNP of 865. EKG: Current EKG shows sinus rhythm, 80 beats per minute. Nonspecific T-wave abnormalities noted. Right bundle-branch block pattern noted. IMPRESSION: This is a 71-year-old man with a history of recent coronary artery bypass graft, mitral valve replacement, who presents with mild volume overload, worsening chronic obstructive pulmonary disease, and atrial fibrillation with rapid rate. On IV amiodarone, he had some either 2:1 AV block or more likely sinus with blocked premature atrial contractions. He is in sinus now. If atrial fibrillation recurs, I think we should restart amiodarone IV. If he has symptomatic bradycardia in this setting, he may need a pacemaker. TRACIE Rufus Paige M.D. / [id number] CC: MD QAMAR Romo AMIE SIMS
--- NOTE | ~2016-11-11 | DS ---
Discharge Summary [facility] [address] [place]. [address] NAME: CRISTINA CLEMENT : 43 STATUS : ADM IN [facility]#: [id number] AGE: 71 ADM/REG DATE : 11/11/16 MR#: [id number] REPORT SERV DATE: 11/20/16 DICTATED BY: NYDIA MCGOVERN DATE: 11/20/16 REPORT STATUS : Draft TRANSCRIBED BY: MODL DATE: 11/20/16 ADMISSION DATE: 11/11/2016 DISCHARGE DATE: 11/20/2016 DIAGNOSES ON ADMISSION: 1. Acute hypoxemic respiratory failure. 2. Coronary artery disease, with known ischemic cardiomyopathy, congestive heart failure, with acute on chronic exacerbation. 3. Recent coronary artery bypass grafting. 4. Chronic obstructive pulmonary disease with chronic hypoxemic respiratory failure requiring 2 to 3 L of oxygen with chronic obstructive pulmonary disease exacerbation. 5. Volume overload. 6. Chronic paroxysmal atrial fibrillation. 7. History of mitral valve regurgitation, status post repair. 8. Diabetes mellitus. DIAGNOSES ON DISCHARGE: 1. Acute respiratory failure, resolved. Chronic respiratory failure, with baseline oxygen requirement of 3 to 4 L, currently on 4 L nasal cannula. No evidence of shortness of breath. No evidence of wheezing. 2. Recent coronary artery bypass grafting with [id number] myocardial infarction, status post mitral valve repair in the same time of surgery on 10/29/[address] El. 3. Congestive heart failure, chronic systolic dysfunction, improved, and his last echocardiogram showed an ejection fraction of 50%, so, it is currently diastolic. 4. Long-standing chronic obstructive pulmonary disease, very advanced, seen by Pulmonary, stable for discharge to [facility]. 5. Hypothyroidism, TSH still elevated on 150 mcg of Synthroid, Synthroid was increased to 175 mcg. TSH to be checked in four weeks. 6. Diabetes mellitus, controlled. 7. Chronic atrial fibrillation, rate controlled, with therapeutic INR. 8. No evidence of pneumonia. 9. Anemia of chronic disease, stable hemoglobin and hematocrit. 10.History of recently found left carotid artery stenosis, high-grade category 2 to low- grade category 3 stenosis of the left internal carotid artery, likely near 70% stenosis on echocardiogram on 10/24/2016, needs to be followed up by manager talent management, Dr. Castillo on the followup appointment. Currently, the patient does not have symptoms. CONSULTANTS ON THE CASE: Horse Farm Manager, Dr. Patricia Castillo, and manager talent management, Dr. Rodriguez, as well as social work therapist Dr. Stormy Delgado. The patient is going to be discharged to [facility]. IMAGING STUDIES DONE DURING THIS HOSPITALIZATION: Echocardiogram done on 11/11/2016, showed technically difficult study. Normal left ventricular size with low normal systolic function. Estimated ejection fraction OF 50%. Mild inferior hypokinesia. Normal right Discharge Summary [address] [place] [address] NAME: CRISTINA CLEMENT : 43 STATUS : ADM IN [facility]#: [id number] AGE: 71 ADM/REG DATE : 11/11/16 MR#: [id number] REPORT SERV DATE: 11/20/16 DICTATED BY: NYDIA MCGOVERN DATE: 11/20/16 REPORT STATUS : Draft TRANSCRIBED BY: KIM DATE: 11/20/16 ventricular size and systolic function. Small circumferential pericardial effusion, status post mitral valve repair, without residual regurgitation aortic valve sclerosis without significant stenosis. Chest x-ray done on 11/19/2016, showed persistent left basilar consolidation with small left pleural effusion, looks like atelectasis. HISTORY OF PRESENT ILLNESS: 1. Briefly, this is a 71-year-old male, who had coronary artery bypass grafting and mitral valve replacement during previous hospitalization and on 11/04/2016, he was supposed to go to inpatient rehabilitation to help solve, but he refused to go there, so, he requested to be discharged home. He went home and he developed more shortness of breath and he was readmitted by Dr. Still on 11/11/2016, with wheezing and acute hypoxemic respiratory failure. The patient has chronic hypoxemic respiratory failure. He requires 3 to 4 L of oxygen at home, and he was a long-term smoker, as well as he had a history of advanced COPD. The patient was initially in the intensive care unit, but his condition stabilized very fast, and he was sent to the regular floor. His oxygen requirement initially was at 10 L, which actually improved day by day, and now he requires only 4 L of oxygen by nasal cannula, and in fact his oxygenation today was 96 on 4 L, and I asked the nurse also to taper him down to 3 to 2 L, it looks like currently it is on his baseline. He does not have any shortness of breath. He is very comfortable. He does not have any chest pain as well. 2. His blood sugar was elevated, but we started him on Levemir 7 units daily, as well as glimepiride 1 mg a day, NovoLog sliding scale level 3, and blood sugar today was 138, 158, his doing well. 3. History of ischemic cardiomyopathy, chronic systolic dysfunction, but the last echocardiogram showed improved in systolic function and it was 50%. 4. Hypothyroidism, the patient initially was on 175 mcg of Synthroid, but then on previous discharged it was decrease to 150 mcg, because at that time, his TSH was over suppressed. At this time, when he came back and was readmitted, he was on Synthroid 150 mcg, and his TSH was persistently elevated, on 11/11/2016, it was 10, on 11/18/2016 it was 11.4, so, I increased his Synthroid back to 175 mcg daily, and it needs to be continued, as well as TSH needs to be checked in four weeks in [facility] or per primary care physician, depending when he will be at that time. 5. Chronic atrial fibrillation, currently rate controlled, and manager talent management, Dr. Rodriguez, who saw this patient today, recommended to continue him on amiodarone 200 mg a day. 6. The patient was also evaluated by Stormy Delgado M.D. who was also okay for the patient to be discharged to [facility]. Overall, the patient is doing well. Today Dr. Rodriguez, manager talent management recommended also to reduce his Bumex to 2 mg daily, with potassium 20 mEq daily, as well as he increased his lisinopril to 5 mg a day, and recommended the patient to be on amiodarone 200 mg daily. DISCHARGE MEDICATIONS: Aspirin 81 mg daily, Lipitor 40 mg daily, amiodarone 200 mg daily, carvedilol 3.125 p.o. b.i.d., Colace 100 mg p.o. twice a day, Neurontin 400 mg p.o. q.8 hours, glimepiride 1 mg p.o. daily, insulin NovoLog level 3 sliding scale, levothyroxine 175 mcg p.o. daily, check TSH in four weeks; lisinopril 5 mg a day, nicotine transdermal patch 21 mg daily, MiraLAX one packet daily, potassium chloride 20 mEq p.o. daily, Spiriva one Discharge Summary [address] [place]. [address] NAME: CRISTINA CLEMENT : 43 STATUS : ADM IN PAT#: [id number] AGE: 71 ADM/REG DATE : 11/11/16 MR#: [id number] REPORT SERV DATE: 11/20/16 DICTATED BY: NYDIA MCGOVERN DATE: 11/20/16 REPORT STATUS : Draft TRANSCRIBED BY: MODLuis DATE: 11/20/16 capsule by inhalation q.24 hours, trazodone 50 mg at bedtime, Coumadin 2.5 mg p.o. daily. PT/INR on Monday, Monday, and Monday at [facility]. Zinc sulfate 220 daily, albuterol inhaled q.4 hours p.r.n. for shortness of breath, Dulera 200/5 two puffs twice a day, Levemir 7 units daily, Colace 100 mg daily p.r.n. for constipation, Ambien 5 mg at bedtime p.r.n. for sleep, Ranitidine 150 p.o. b.i.d. I spent 45 minutes on discharge. MG/MODL Nydia Mcgovern M.D. / [id number] CC: Mary Herrera AMIE SIMS Lisa Gail Carkner, M.D.
[~2016-11-11 00:36] MED LIST: AMARYL2 PO; ASAB PO; BREO ELLIPTA 21 EACH INH; CORDARONE PO; HABIT21 TOP; K-TABS10 MEQ PO; L20 PO; LIPITOR40 PO; MEVACOR40 MG PO; NEUR400 PO; NORCO1 TAB PO; PRIN2.5 PO; PROVHFA INH; SPIRIVA RESPIMAT INH; SYNTHROID200 MCG PO; TOPXL25; TOPXL25 PO; TRAZ50 PO; VALIUM10 MG PO; ZANTAC150 MG PO; ZINC220C PO
[2016-11-11 03:55] LABS: BE (BASE EXCESS) 14.7 MEQ/L (0 +/- 2.5); CARBOXYHEMOGLOBIN 0.7 % (0-3); DEVICE HFNC; HCO3 (ACTUAL BICARBONATE) 40.6 MEQ/L (23-27); HEMOBLOGIN CONTENT 10.3 G/DL (14-18); INSTRUMENT SERIAL # 11843; METHEMOGLOBIN 0.3 % (0-3); O2 CONTENT 12.7 VOL% (18-24); OPERATOR ID 23712; PCO2 (CO2 TENSION) 58 MMHG (35-45); PO2 (O2 TENSION) 54 MMHG (79-93); SAMPLE Arterial; pH 7.46 (7.37-7.43)
[2016-11-11 04:10] LABS: BASOPHILS 0.2 %; BASOPHILS ABSOLUTE 0.03 10/3/uL (0.0-0.16); EOSINOPHILS 0.4 %; EOSINOPHILS ABSOLUTE 0.07 10/3/uL (0.0-0.53); HEMOGLOBIN 9.9 g/dL (13.6-17.8); IMMATURE GRANULOCYTES 0.2 %; IMMATURE GRANULOCYTES ABSOLUTE 0.03 10/3/uL (0.0-0.11); LYMPHOCYTES 5.9 %; LYMPHOCYTES ABSOLUTE 0.92 10/3/uL (0.67-4.30); MEAN CORPUSCULAR HEMOGLOB 30.7 pg (26.0-34.0); MEAN PLATELET VOLUME 9.4 fL (9.2-13.0); MONOCYTES 6.1 %; MONOCYTES ABSOLUTE 0.95 10/3/uL (0.21-1.20); NEUTROPHILS 87.2 %; NEUTROPHILS ABSOLUTE 13.69 10/3/uL (2.02-8.40); RBC DISTRIBUTION WIDTH 14.2 % (12.0-16.0); RED CELL COUNT 3.23 10/6/uL (4.7-6.1)
[2016-11-11 04:18] LABS: INTERNATIONAL NORMAL RATI 1.3 UNITS (-); PARTIAL THROMBO TIME 37.7 SEC (22.5-37.2)
[2016-11-11 04:20] LABS: MANUAL DIFF NO %; MEAN CORPUS HGB CONC 30.9 g/dL (32.0-36.0); MEAN CORPUSCULAR VOLUME 99.1 fL (80-100); PLATELET COUNT 376 10/3/uL (150-400); WHITE BLOOD CELLS 15.7 10/3/uL (4.5-10.5)
[2016-11-11 04:24] LABS: PROTIME (NOT ORD) 15.8 SEC (12.0-14.5)
[2016-11-11 04:54] LABS: ALKALINE PHOSPHATASE 87 U/L (45-117); BUN (BLOOD UREA NITROGEN) 12 MG/DL (6-23); CHLORIDE, SERUM 92 MMOL/L (96-112); CPK 60 U/L (0-200); FREE T4 1.17 NG/DL (0.76-1.46); GFR AFRICAN AMERICAN 99 ML/MIN (>=60); GFR NON AFRICAN AMERICAN 85 ML/MIN (>=60); PHOSPHORUS, SERUM 2.8 MG/DL (2.5-4.5); POTASSIUM, SERUM 3.7 MMOL/L (3.5-5.3); SGOT(AST) 24 U/L (5-40); SGPT(ALT) 17 U/L (5-65); SODIUM, SERUM 140 MMOL/L (135-148); TOTAL PROTEIN 7.2 G/DL (6.0-8.5)
[2016-11-11 05:05] LABS: A/G RATIO 0.5 (0.7-1.9); ALBUMIN 2.3 G/DL (3.5-5.0); CALCIUM, SERUM 8.9 MG/DL (8.5-10.4); CK-MB 1.4 NG/ML; CO2 (CARBON DIOXIDE) 42 MMOL/L (24-34); FOLATE 8.6 NG/ML (>5.2); GLOBULIN 4.9 G/DL (2.5-4.1); GLUCOSE, SERUM 74 MG/DL (60-99); TOTAL BILIRUBIN 0.7 MG/DL (0-1.2); TROPONIN I 0.07 NG/ML (<0.05)
[2016-11-11 06:12] LABS: ASCORBIC ACID (UR NOT ORDER) NEG (NEG); BILIRUBIN, URINE NEGATIVE (NEG); KETONE, URINE NEGATIVE (NEG); LEUKOCYTE ESTERASE(NOT OR TRACE (NEG); WBC (NOT ORDERED) (RFLEX) 2 (0-5)
[2016-11-11 06:25] LABS: B NATRIURETIC PEPTIDE (BNP) 865.1 PG/ML (< 100.0)
[2016-11-11 06:49] LABS: PROCALCITONIN <0.05 ng/mL (<0.5)
[2016-11-11 12:38] LABS: BE (BASE EXCESS) 8.5 MEQ/L (0 +/- 2.5); CARBOXYHEMOGLOBIN 0.9 % (0-3); HEMOBLOGIN CONTENT 10.8 G/DL (14-18); INSTRUMENT SERIAL # 11843; METHEMOGLOBIN 0.3 % (0-3); O2 CONTENT 13.7 VOL% (18-24); PCO2 (CO2 TENSION) 52 MMHG (35-45); PO2 (O2 TENSION) 64 MMHG (79-93); pH 7.44 (7.37-7.43)
[2016-11-11 12:39] LABS: DEVICE NC; SAMPLE Arterial
[2016-11-11 13:17] LABS: BUN (BLOOD UREA NITROGEN) 16 MG/DL (6-23); CALCIUM, SERUM 8.5 MG/DL (8.5-10.4); CHLORIDE, SERUM 91 MMOL/L (96-112); CO2 (CARBON DIOXIDE) 38 MMOL/L (24-34); CREATININE 0.88 MG/DL (0.70-1.30); GFR AFRICAN AMERICAN 99 ML/MIN (>=60); GFR NON AFRICAN AMERICAN 86 ML/MIN (>=60); GLUCOSE, SERUM 187 MG/DL (60-99); POTASSIUM, SERUM 4.1 MMOL/L (3.5-5.3); SODIUM, SERUM 136 MMOL/L (135-148)
[2016-11-11 13:35] LABS: CPK 47 U/L (0-200)
[2016-11-11 13:36] LABS: CK-MB 1.4 NG/ML; TROPONIN I 0.06 NG/ML (<0.05)
[2016-11-11 21:25] LABS: CPK 39 U/L (0-200)
[2016-11-11 21:26] LABS: CK-MB 1.2 NG/ML; TROPONIN I 0.06 NG/ML (<0.05)
[2016-11-12 04:43] LABS: INTERNATIONAL NORMAL RATI 1.3 UNITS (-); PROTIME (NOT ORD) 15.9 SEC (12.0-14.5)
[2016-11-12 04:51] LABS: BUN (BLOOD UREA NITROGEN) 17 MG/DL (6-23); CALCIUM, SERUM 8.4 MG/DL (8.5-10.4); CHLORIDE, SERUM 93 MMOL/L (96-112); CREATININE 0.89 MG/DL (0.70-1.30); GFR AFRICAN AMERICAN 99 ML/MIN (>=60); GFR NON AFRICAN AMERICAN 85 ML/MIN (>=60); PHOSPHORUS, SERUM 2.3 MG/DL (2.5-4.5); POTASSIUM, SERUM 3.7 MMOL/L (3.5-5.3); SODIUM, SERUM 139 MMOL/L (135-148)
[2016-11-12 04:55] LABS: CO2 (CARBON DIOXIDE) 41 MMOL/L (24-34); GLUCOSE, SERUM 121 MG/DL (60-99)
[2016-11-12 08:33] LABS: BASOPHILS 0.2 %; BASOPHILS ABSOLUTE 0.02 10/3/uL (0.0-0.16); EOSINOPHILS 3.1 %; EOSINOPHILS ABSOLUTE 0.33 10/3/uL (0.0-0.53); HEMATOCRIT 31.4 % (40.0-51.0); HEMOGLOBIN 9.9 g/dL (13.6-17.8); IMMATURE GRANULOCYTES 0.2 %; IMMATURE GRANULOCYTES ABSOLUTE 0.02 10/3/uL (0.0-0.11); LYMPHOCYTES 6.1 %; LYMPHOCYTES ABSOLUTE 0.66 10/3/uL (0.67-4.30); MEAN CORPUS HGB CONC 31.5 g/dL (32.0-36.0); MEAN CORPUSCULAR HEMOGLOB 30.7 pg (26.0-34.0); MEAN CORPUSCULAR VOLUME 97.2 fL (80-100); MEAN PLATELET VOLUME 9.1 fL (9.2-13.0); MONOCYTES 7.3 %; MONOCYTES ABSOLUTE 0.79 10/3/uL (0.21-1.20); NEUTROPHILS 83.1 %; NEUTROPHILS ABSOLUTE 8.98 10/3/uL (2.02-8.40); PLATELET COUNT 324 10/3/uL (150-400); RBC DISTRIBUTION WIDTH 14.1 % (12.0-16.0); RED CELL COUNT 3.23 10/6/uL (4.7-6.1); WHITE BLOOD CELLS 10.8 10/3/uL (4.5-10.5)
[2016-11-12 08:35] LABS: MANUAL DIFF NO %
[2016-11-13 06:20] LABS: BASOPHILS 0.2 %; BASOPHILS ABSOLUTE 0.02 10/3/uL (0.0-0.16); EOSINOPHILS 3.5 %; EOSINOPHILS ABSOLUTE 0.34 10/3/uL (0.0-0.53); HEMOGLOBIN 9.3 g/dL (13.6-17.8); IMMATURE GRANULOCYTES 0.2 %; IMMATURE GRANULOCYTES ABSOLUTE 0.02 10/3/uL (0.0-0.11); LYMPHOCYTES 5.4 %; LYMPHOCYTES ABSOLUTE 0.52 10/3/uL (0.67-4.30); MANUAL DIFF NO %; MEAN CORPUS HGB CONC 32.1 g/dL (32.0-36.0); MEAN CORPUSCULAR HEMOGLOB 30.6 pg (26.0-34.0); MEAN CORPUSCULAR VOLUME 95.4 fL (80-100); MEAN PLATELET VOLUME 9.2 fL (9.2-13.0); MONOCYTES 7.7 %; MONOCYTES ABSOLUTE 0.74 10/3/uL (0.21-1.20); NEUTROPHILS ABSOLUTE 7.94 10/3/uL (2.02-8.40); PLATELET COUNT 313 10/3/uL (150-400); RBC DISTRIBUTION WIDTH 14.3 % (12.0-16.0); RED CELL COUNT 3.04 10/6/uL (4.7-6.1); WHITE BLOOD CELLS 9.6 10/3/uL (4.5-10.5)
[2016-11-13 06:25] LABS: INTERNATIONAL NORMAL RATI 1.7 UNITS (-)
[2016-11-13 06:26] LABS: PROTIME (NOT ORD) 19.6 SEC (12.0-14.5)
[2016-11-13 06:40] LABS: ALBUMIN 2.6 G/DL (3.5-5.0); BUN (BLOOD UREA NITROGEN) 15 MG/DL (6-23); CALCIUM, SERUM 8.7 MG/DL (8.5-10.4); CHLORIDE, SERUM 100 MMOL/L (96-112); CO2 (CARBON DIOXIDE) 33 MMOL/L (24-34); CREATININE 0.86 MG/DL (0.70-1.30); GFR AFRICAN AMERICAN 100 ML/MIN (>=60); GFR NON AFRICAN AMERICAN 87 ML/MIN (>=60); GLUCOSE, SERUM 144 MG/DL (60-99); PHOSPHORUS, SERUM 1.8 MG/DL (2.5-4.5); POTASSIUM, SERUM 3.2 MMOL/L (3.5-5.3); SODIUM, SERUM 140 MMOL/L (135-148)
[2016-11-14 04:23] LABS: BASOPHILS 0.1 %; BASOPHILS ABSOLUTE 0.01 10/3/uL (0.0-0.16); EOSINOPHILS 3.1 %; EOSINOPHILS ABSOLUTE 0.25 10/3/uL (0.0-0.53); HEMATOCRIT 28.5 % (40.0-51.0); IMMATURE GRANULOCYTES 0.1 %; IMMATURE GRANULOCYTES ABSOLUTE 0.01 10/3/uL (0.0-0.11); LYMPHOCYTES ABSOLUTE 0.41 10/3/uL (0.67-4.30); MEAN CORPUS HGB CONC 31.6 g/dL (32.0-36.0); MEAN CORPUSCULAR HEMOGLOB 30.1 pg (26.0-34.0); MEAN CORPUSCULAR VOLUME 95.3 fL (80-100); MEAN PLATELET VOLUME 9.3 fL (9.2-13.0); MONOCYTES ABSOLUTE 0.65 10/3/uL (0.21-1.20); NEUTROPHILS 83.7 %; NEUTROPHILS ABSOLUTE 6.84 10/3/uL (2.02-8.40); PLATELET COUNT 298 10/3/uL (150-400); RBC DISTRIBUTION WIDTH 14.3 % (12.0-16.0); RED CELL COUNT 2.99 10/6/uL (4.7-6.1); WHITE BLOOD CELLS 8.2 10/3/uL (4.5-10.5)
[2016-11-14 04:25] LABS: MANUAL DIFF NO %
[2016-11-14 04:38] LABS: BUN (BLOOD UREA NITROGEN) 16 MG/DL (6-23); CALCIUM, SERUM 8.8 MG/DL (8.5-10.4); CHLORIDE, SERUM 101 MMOL/L (96-112); CO2 (CARBON DIOXIDE) 35 MMOL/L (24-34); CREATININE 0.83 MG/DL (0.70-1.30); GFR AFRICAN AMERICAN 102 ML/MIN (>=60); GFR NON AFRICAN AMERICAN 88 ML/MIN (>=60); GLUCOSE, SERUM 126 MG/DL (60-99); POTASSIUM, SERUM 3.7 MMOL/L (3.5-5.3); SODIUM, SERUM 140 MMOL/L (135-148)
[2016-11-14 05:22] LABS: INTERNATIONAL NORMAL RATI 2.2 UNITS (-)
[2016-11-15 06:42] LABS: INTERNATIONAL NORMAL RATI 2.4 UNITS (-); PROTIME (NOT ORD) 25.8 SEC (12.0-14.5)
[2016-11-15 06:48] LABS: CALCIUM, SERUM 9.1 MG/DL (8.5-10.4); CHLORIDE, SERUM 95 MMOL/L (96-112); CO2 (CARBON DIOXIDE) 38 MMOL/L (24-34); CREATININE 0.94 MG/DL (0.70-1.30); GFR AFRICAN AMERICAN 94 ML/MIN (>=60); GFR NON AFRICAN AMERICAN 81 ML/MIN (>=60); GLUCOSE, SERUM 148 MG/DL (60-99); POTASSIUM, SERUM 3.6 MMOL/L (3.5-5.3); SODIUM, SERUM 138 MMOL/L (135-148)
[2016-11-15 06:49] LABS: BUN (BLOOD UREA NITROGEN) 25 MG/DL (6-23)
[2016-11-16 04:43] LABS: MEAN CORPUS HGB CONC 32.5 g/dL (32.0-36.0); MEAN CORPUSCULAR HEMOGLOB 30.9 pg (26.0-34.0); MEAN CORPUSCULAR VOLUME 94.9 fL (80-100); MEAN PLATELET VOLUME 9.1 fL (9.2-13.0); PLATELET COUNT 297 10/3/uL (150-400); RED CELL COUNT 3.56 10/6/uL (4.7-6.1); WHITE BLOOD CELLS 10.1 10/3/uL (4.5-10.5)
[2016-11-16 04:44] LABS: HEMATOCRIT 33.8 % (40.0-51.0); MANUAL DIFF YES %
[2016-11-16 04:48] LABS: INTERNATIONAL NORMAL RATI 2.4 UNITS (-); PROTIME (NOT ORD) 26.3 SEC (12.0-14.5)
[2016-11-16 05:00] LABS: BUN (BLOOD UREA NITROGEN) 28 MG/DL (6-23); CALCIUM, SERUM 9.1 MG/DL (8.5-10.4); CHLORIDE, SERUM 96 MMOL/L (96-112); CO2 (CARBON DIOXIDE) 36 MMOL/L (24-34); CREATININE 0.91 MG/DL (0.70-1.30); GFR AFRICAN AMERICAN 97 ML/MIN (>=60); GFR NON AFRICAN AMERICAN 84 ML/MIN (>=60); GLUCOSE, SERUM 162 MG/DL (60-99); POTASSIUM, SERUM 3.8 MMOL/L (3.5-5.3); SODIUM, SERUM 138 MMOL/L (135-148)
[2016-11-16 05:05] LABS: ATYPICAL LYMPH FEW (3-5%) (0-5%); BAND NEUTROPHILS 2 %; LYMPHOCYTES 22 %; LYMPHOCYTES ABSOLUTE (CALC) 2.22 10/3/uL (0.67-4.30); MONOCYTES 6 %; MONOCYTES ABSOLUTE (CALC) 0.61 10/3/uL (0.21-1.20); NEUTROPHILS ABSOLUTE (CALC) 7.27 10/3/uL (2.02-8.40); PLATELET ESTIMATE ADQ (ADEQUATE); SEGMENTED NEUTROPHIL (0) 70 %; TOTAL NUCLEATED CELLS 100
[2016-11-16 05:06] LABS: RBC MORPHOLOGY NORM (NORMAL)
[2016-11-17 04:28] LABS: HEMOGLOBIN 12.5 g/dL (13.6-17.8); MEAN CORPUS HGB CONC 32.4 g/dL (32.0-36.0); MEAN CORPUSCULAR HEMOGLOB 30.5 pg (26.0-34.0); MEAN CORPUSCULAR VOLUME 94.1 fL (80-100); MEAN PLATELET VOLUME 9.7 fL (9.2-13.0); PLATELET COUNT 309 10/3/uL (150-400); RBC DISTRIBUTION WIDTH 14.3 % (12.0-16.0)
[2016-11-17 04:31] LABS: HEMATOCRIT 38.6 % (40.0-51.0); MANUAL DIFF YES %
[2016-11-17 04:33] LABS: BUN (BLOOD UREA NITROGEN) 30 MG/DL (6-23); CALCIUM, SERUM 9.3 MG/DL (8.5-10.4); CHLORIDE, SERUM 92 MMOL/L (96-112); CO2 (CARBON DIOXIDE) 37 MMOL/L (24-34); CREATININE 1.04 MG/DL (0.70-1.30); GFR AFRICAN AMERICAN 83 ML/MIN (>=60); GFR NON AFRICAN AMERICAN 71 ML/MIN (>=60); GLUCOSE, SERUM 171 MG/DL (60-99); POTASSIUM, SERUM 3.9 MMOL/L (3.5-5.3); SODIUM, SERUM 136 MMOL/L (135-148)
[2016-11-17 04:35] LABS: INTERNATIONAL NORMAL RATI 2.4 UNITS (-); PROTIME (NOT ORD) 25.6 SEC (12.0-14.5)
[2016-11-17 05:35] LABS: BAND NEUTROPHILS 1 %; BASOPHILS 1 %; BASOPHILS ABSOLUTE (CALC) 0.11 10/3/uL (0.0-0.16); EOSINOPHILS 2 %; EOSINOPHILS ABSOLUTE (CALC) 0.22 10/3/uL (0.0-0.53); LYMPHOCYTES 29 %; LYMPHOCYTES ABSOLUTE (CALC) 3.19 10/3/uL (0.67-4.30); MONOCYTES 2 %; MONOCYTES ABSOLUTE (CALC) 0.22 10/3/uL (0.21-1.20); NEUTROPHILS ABSOLUTE (CALC) 7.26 10/3/uL (2.02-8.40); SEGMENTED NEUTROPHIL (0) 65 %; TOTAL NUCLEATED CELLS 100
[2016-11-17 05:36] LABS: PLATELET ESTIMATE ADQ (ADEQUATE); RBC MORPHOLOGY NORM (NORMAL)
[2016-11-18 05:57] LABS: INTERNATIONAL NORMAL RATI 2.4 UNITS (-); PROTIME (NOT ORD) 25.6 SEC (12.0-14.5)
[2016-11-18 05:59] LABS: BASOPHILS 0.6 %; BASOPHILS ABSOLUTE 0.06 10/3/uL (0.0-0.16); EOSINOPHILS 4.6 %; HEMATOCRIT 36.2 % (40.0-51.0); HEMOGLOBIN 11.8 g/dL (13.6-17.8); IMMATURE GRANULOCYTES 0.2 %; IMMATURE GRANULOCYTES ABSOLUTE 0.02 10/3/uL (0.0-0.11); LYMPHOCYTES 21.4 %; LYMPHOCYTES ABSOLUTE 2.31 10/3/uL (0.67-4.30); MANUAL DIFF NO %; MEAN CORPUS HGB CONC 32.6 g/dL (32.0-36.0); MEAN CORPUSCULAR HEMOGLOB 30.3 pg (26.0-34.0); MEAN CORPUSCULAR VOLUME 92.8 fL (80-100); MEAN PLATELET VOLUME 9.8 fL (9.2-13.0); MONOCYTES 8.4 %; NEUTROPHILS 64.8 %; NEUTROPHILS ABSOLUTE 6.98 10/3/uL (2.02-8.40); PLATELET COUNT 272 10/3/uL (150-400); RBC DISTRIBUTION WIDTH 14.5 % (12.0-16.0); WHITE BLOOD CELLS 10.8 10/3/uL (4.5-10.5)
[2016-11-18 06:08] LABS: BUN (BLOOD UREA NITROGEN) 29 MG/DL (6-23); CALCIUM, SERUM 8.7 MG/DL (8.5-10.4); CHLORIDE, SERUM 92 MMOL/L (96-112); CO2 (CARBON DIOXIDE) 37 MMOL/L (24-34); CREATININE 1.01 MG/DL (0.70-1.30); GFR AFRICAN AMERICAN 86 ML/MIN (>=60); GFR NON AFRICAN AMERICAN 74 ML/MIN (>=60); GLUCOSE, SERUM 163 MG/DL (60-99); SODIUM, SERUM 135 MMOL/L (135-148)
[2016-11-19 06:16] LABS: INTERNATIONAL NORMAL RATI 2.1 UNITS (-); PROTIME (NOT ORD) 23.7 SEC (12.0-14.5)
[2016-11-19 06:19] LABS: BUN (BLOOD UREA NITROGEN) 32 MG/DL (6-23); CALCIUM, SERUM 8.2 MG/DL (8.5-10.4); CHLORIDE, SERUM 94 MMOL/L (96-112); CREATININE 1.09 MG/DL (0.70-1.30); GFR AFRICAN AMERICAN 78 ML/MIN (>=60); GFR NON AFRICAN AMERICAN 67 ML/MIN (>=60); POTASSIUM, SERUM 3.7 MMOL/L (3.5-5.3); SODIUM, SERUM 137 MMOL/L (135-148)
[2016-11-19 06:20] LABS: CO2 (CARBON DIOXIDE) 42 MMOL/L (24-34); GLUCOSE, SERUM 291 MG/DL (60-99)
[2016-11-19 11:48] LABS: ALLENS TEST Pos; BE (BASE EXCESS) 7.9 MEQ/L (0 +/- 2.5); CARBOXYHEMOGLOBIN 0.7 % (0-3); DEVICE NC; HCO3 (ACTUAL BICARBONATE) 33.3 MEQ/L (23-27); INSTRUMENT SERIAL # 35151; METHEMOGLOBIN 0.3 % (0-3); O2 CONTENT 16.4 VOL% (18-24); OPERATOR ID 13715; PCO2 (CO2 TENSION) 50 MMHG (35-45); PO2 (O2 TENSION) 100 MMHG (79-93); SAMPLE Arterial; pH 7.44 (7.37-7.43)
[2016-11-20 06:16] LABS: INTERNATIONAL NORMAL RATI 2.3 UNITS (-); PROTIME (NOT ORD) 25.4 SEC (12.0-14.5)
== END 2016-11-20 15:02 | DRG 280 ==
LOC: CVICU 00:36 → 5NO 11-12 16:45
PROVIDERS: Hospitalist; Internal Medicine; Internal Medicine Critical Care Medicine; Internal Medicine Pulmonary Disease; Nurse Practitioner; Nurse Practitioner Family
DX: I21.4 Non-ST elevation (NSTEMI) myocardial infarction (principal); I50.23 Acute on chronic systolic (congestive) heart failure; J96.01 Acute respiratory failure with hypoxia; E11.51 Type 2 diabetes mellitus with diabetic peripheral angiopathy without gangrene; E11.42 Type 2 diabetes mellitus with diabetic polyneuropathy; I44.1 Atrioventricular block, second degree; Z99.81 Dependence on supplemental oxygen; J44.9 Chronic obstructive pulmonary disease, unspecified; I48.0 Paroxysmal atrial fibrillation; E03.9 Hypothyroidism, unspecified; E78.5 Hyperlipidemia, unspecified; I25.10 Atherosclerotic heart disease of native coronary artery without angina pectoris; F17.210 Nicotine dependence, cigarettes, uncomplicated; I34.0 Nonrheumatic mitral (valve) insufficiency; I25.5 Ischemic cardiomyopathy; D63.8 Anemia in other chronic diseases classified elsewhere; D53.9 Nutritional anemia, unspecified; R41.0 Disorientation, unspecified; E78.00 Pure hypercholesterolemia, unspecified; I45.10 Unspecified right bundle-branch block; I49.3 Ventricular premature depolarization; Z95.1 Presence of aortocoronary bypass graft; I25.2 Old myocardial infarction; Z88.2 Allergy status to sulfonamides; Z91.14 Patient's other noncompliance with medication regimen
CPT/HCPCS: 36600; 71010; 71020; 80048; 80053; 80069; 81001; 82140; 82550; 82553; 82607; 82746; 82805; 82962; 83036; 83605; 83735; 83880; 84100; 84145; 84439; 84443; 84484; 85025; 85610; 85730; 87040; 87205; 87449; 87641; 92610-GN; 93005; 93306; 94640; 97110-GO; 97116-GP; 97162-GP; 97165-GO; 97535-GO; A9270-GY; J0282; J1120; J1160; J2405; J2543; J3370; P9047

== ENCOUNTER 2016-12-14 00:36 | Inpatient (IN) | payer BC ==
--- NOTE | ~2016-12-14 | HP ---
History And Physical [address] [address] NAME: CRISTINA VILLEDA : 43 STATUS : ADM IN [facility]#: [id number] AGE: 71 ADM/REG DATE : 12/14/16 MR#: [id number] REPORT SERV DATE: 12/14/16 DICTATED BY: RAMESH ELLINGTON DATE: 12/14/16 REPORT STATUS : Draft TRANSCRIBED BY: MODL DATE: 12/14/16 DATE OF ADMISSION: 12/14/2016 POINT OF ENTRY: Transferred from [facility] Emergency Department. PRIMARY DISPATCH SUPERVISOR: RENATA, physician unknown. CHIEF COMPLAINT: Shortness of breath. HISTORY OF PRESENT ILLNESS: Mr. Villeda is a 71-year-old gentleman with a history of coronary artery disease, status post recent coronary artery bypass grafting; insulin-dependent diabetes mellitus type 2; COPD, on 3 L nasal cannula; hypertension; hyperlipidemia, who presents to the emergency department today with reports of shortness of breath and concern for volume overload and found to have a large left-sided pleural effusion. The patient states that he was feeling pretty much at his baseline. When pressed for more details, he does endorse to some mild worsening shortness of breath. He denies any recent fevers, night sweats, chills, chest pain, palpitations, cough, sputum production, wheezing, abdominal pain, nausea, vomiting, diarrhea, or constipation. His home health nurse was concerned that he was developing volume overload and that he did gain 2 pounds in the last week. She also felt that he was a little wheezy and was visibly short of breath. Therefore, she sent him into the emergency room at [facility] for evaluation. Initial evaluation in the [facility] Emergency Department notable for a chest x-ray that shows a large left-sided pleural effusion. BNP mildly elevated at 211. Troponin is elevated at 1.31. His EKG was nonischemic. The patient was given 40 mg of IV Lasix and admitted and transferred to [facility] for higher level of care. COMPREHENSIVE REVIEW OF SYSTEMS: Otherwise negative unless listed in history of present illness. PREVIOUS MEDICAL HISTORY: 1. Coronary artery disease with prior coronary artery bypass grafting. 2. Paroxysmal atrial fibrillation, on anticoagulation. 3. COPD, on chronic 3 L of nasal cannula. 4. Insulin-dependent diabetes mellitus, type 2. 5. Hypertension. 6. Hyperlipidemia. 7. Hypothyroidism. 8. Peripheral vascular disease. 9. Chronic diastolic congestive heart failure. SURGICAL HISTORY: 1. Coronary artery bypass grafting. 2. Mitral valve repair. 3. Right carotid endarterectomy. History And Physical [address] [address] NAME: CRISTINA VILLEDA : 43 STATUS : ADM IN [facility]#: [id number] AGE: 71 ADM/REG DATE : 12/14/16 MR#: [id number] REPORT SERV DATE: 12/14/16 DICTATED BY: RAMESH ELLINGTON DATE: 12/14/16 REPORT STATUS : Draft TRANSCRIBED BY: KIM DATE: 12/14/16 4. Hemorrhoidectomy. 5. Cholecystectomy. ALLERGIES: SULFA DRUGS. HOME MEDICATIONS: 1. Albuterol one inhalation q.i.d. 2. Amiodarone 200 mg b.i.d. 3. Aspirin 81 mg daily. 4. Atorvastatin 40 mg daily. 5. Carvedilol 3.125 mg b.i.d. 6. Valium 10 mg b.i.d. 7. Benadryl 25 mg daily p.r.n. 8. Breo Ellipta one puff inhalation daily. 9. Lasix 20 mg daily. 10.Gabapentin 40 mg t.i.d. 11.Glimepiride 2 mg daily. 12.Hydrocodone 10/325 one tab q.i.d. 13.75/25 Humalog 15 units b.i.d. 14.Levothyroxine 200 mcg daily. 15.Nicotine transdermal patch. 16.Potassium chloride 10 mEq daily. 17.Spiriva two puffs inhalation daily. 18.Trazodone 100 mg at bedtime. 19.Coumadin 2.5 mg daily. SOCIAL HISTORY: He is a former smoker. Denies any tobacco, alcohol, or illicits. MEDICAL HISTORY: Mother with congestive heart failure. Father of complications of alcoholism. Siblings with diabetes and coronary artery disease. LABS AND IMAGING: All obtained from transfer records from [facility] Emergency Department: 1. White count 6.5, hemoglobin 10.3, hematocrit is 37.1, and platelets 224. MCV is 103.1. INR 1.5. 2. Sodium is 139, potassium 3.7, chloride 94, carbon dioxide 37, BUN 15, creatinine 0.8, glucose is 72, calcium is 8.7, protein 7.4, albumin 3.5, bilirubin is 0.4, ALT is 19, AST 23, alkaline phosphatase is 101. 3. Urinalysis: Specific gravity was 1.017. No evidence of any infection. 4. Troponin 1.31. BNP is 211. 5. Chest x-ray per ER provider report shows a large left-sided pleural effusion. Unfortunately, I am unable to see the images of the chest x-ray at this time. 6. EKG per my review shows right bundle-branch block with extreme right axis deviation with no evidence of any acute ischemia or infarction. PHYSICAL EXAMINATION: VITAL SIGNS: Temperature is afebrile. Blood pressure is 133/64, pulse is 89, respirations 12, saturating 91% on 5 L by nasal cannula. History And Physical [address] [address] NAME: CRISTINA VILLEDA : 43 STATUS : ADM IN [facility]#: [id number] AGE: 71 ADM/REG DATE : 12/14/16 MR#: [id number] REPORT SERV DATE: 12/14/16 DICTATED BY: RAMESH ELLINGTON DATE: 12/14/16 REPORT STATUS : Draft TRANSCRIBED BY: KIM DATE: 12/14/16 GENERAL: The patient is awake, alert, in no acute distress. Resting comfortably in bed. He is a well-developed, well-nourished, elderly male. HEENT: Atraumatic and normocephalic. Moist mucous membranes. Pupils are equal, round, reactive to light and accommodation. Extraocular eye movements are intact. No scleral icterus. NECK: No jugular venous distention. No carotid bruits. CARDIAC: Regular rate and rhythm. No murmurs, rubs, or gallops. Normal S1, S2. LUNGS: On oxygen. Does have some decreased breath sounds in the right base as well as some mild inspiratory crackles. The left side has decreased breath sounds approximately detention up the lung chong. ABDOMEN: Soft, nontender, nondistended with good bowel sounds. No rebound, guarding, or rigidity. EXTREMITIES: Warm and perfused. No cyanosis, clubbing, or edema. SKIN: Warm and dry. PSYCH: Affect appropriate. NEURO: Alert and oriented x3. Cranial nerves 2 through 12 grossly intact. Speech is normal. Gait not assessed. ASSESSMENT AND PLAN: Mr. Villeda is a 71-year-old gentleman who presents at the urging of his home health nurse for concerns for volume overload, and in fact, found to have evidence of left-sided pleural effusion. PROBLEM LIST: 1. Large left-sided pleural effusion. 2. Acute on chronic hypoxic respiratory failure. 3. Elevated troponin value. 4. Chronic obstructive pulmonary disease without evidence of exacerbation. 5. Subtherapeutic INR. 6. Insulin-dependent diabetes mellitus type 2. PLAN: 1. Large left-sided pleural effusion. He has received 40 mg of IV Lasix at the outside facility with good diuresis. We will recheck a chest x-ray this morning, and if still considerable size, we will ask Pulmonology to see patient for possible diagnostic as well as therapeutic thoracentesis. 2. Acute on chronic hypoxic respiratory failure likely secondary to large left-sided pleural effusion as he does not have any evidence of acute COPD exacerbation at this time and without any evidence of gross volume overload. We will continue to wean as tolerated with increased Lasix dosing as well as possible thoracentesis. 3. Elevated troponin value, likely demand ischemia. The patient denies any chest pain. EKG is nonischemic. We will continue to trend out cardiac enzymes. Consult Cardiology for assistance. 4. Subtherapeutic INR. Ask pharmacy to assist with dosing of the patient's home Coumadin given subtherapeutic INR. 5. COPD. The patient does not have any evidence of acute exacerbation at this time. We will continue the patient's home inhalers and bronchodilators. 6. DVT prophylaxis. The patient is on Coumadin. History And Physical [address] [address] NAME: CRISTINA VILLEDA : 43 STATUS : ADM IN [facility]#: [id number] AGE: 71 ADM/REG DATE : 12/14/16 MR#: [id number] REPORT SERV DATE: 12/14/16 DICTATED BY: RAMESH ELLINGTON DATE: 12/14/16 REPORT STATUS : Draft TRANSCRIBED BY: KIM DATE: 12/14/16 CODE STATUS: The patient wished to be full code. ANTONIO/KIM Ramesh Ellington MD / [id number] CC: Rufus Maurice Jr, MD Amie Reece, NP
--- NOTE | ~2016-12-14 | DS ---
Discharge Summary [address] [place]. [address] NAME: CRISTINA CLEMENT : 43 STATUS : DIS IN PAT#: [id number] AGE: 71 ADM/REG DATE : 12/14/16 MR#: [id number] REPORT SERV DATE: 12/17/16 DICTATED BY: JR. NEVES WILLIAM JOHN DATE: 12/16/16 REPORT STATUS : Draft TRANSCRIBED BY: MODLuis DATE: 12/16/16 ADMISSION DATE: 12/14/2016 DISCHARGE DATE: 12/16/2016 DISCHARGE DIAGNOSES: 1. Large left pleural effusion status post thoracentesis of 1.5 L on 12/14/2016. 2. Acute on chronic respiratory failure on his baseline 4 L oxygen. 3. Pulmonary infiltrate. 4. Chronic obstructive pulmonary disease. 5. History of bypass grafting x4 with mitral valve annuloplasty on 10/28/2016. OPERATIONS, PROCEDURES, AND TREATMENTS: 1. Chest x-ray done on 12/14/2016 which showed increased asymmetrical infiltrates, increased bibasilar atelectasis, and increased left pleural effusion. 2. Thoracentesis of 1.5 L on the left side on 12/14/2016. 3. Portable chest x-ray done on 12/15/2016 showed persistent left basilar consolidation with improved infiltrate of the right mid lung field and increased consolidation of the right base. 4. CT of the chest done on 12/15/2016 which showed moderate interstitial edema with small effusion on the left, minimal effusion on the right. There was peripheral airspace disease in the right upper lobe suspicious for pneumonia as well as bibasilar atelectasis and small regions of consolidation. There were stable mildly enlarged mediastinal lymph nodes, largest node was right peritracheal measuring 1.6 x 1.5 cm. DISCHARGE MEDICATIONS: 1. Aspirin 81 mg orally daily. 2. Lipitor 40 mg orally daily. 3. Amiodarone 200 mg orally twice a day. 4. Coreg 3.125 mg orally twice a day. 5. Valium 10 mg orally twice a day. 6. Lasix 40 mg orally twice a day for one week, then 40 mg orally daily. 7. Neurontin 400 mg three times a day. 8. [place] 10/325 mg, one tablet four times a day. 9. 75/25 Humalog mix 15 units twice a day. 10.Glimepiride 2 mg daily. 11.Synthroid 200 mcg orally daily. 12.Lisinopril 2.5 mg orally daily. 13.Nicotine transdermal patch 21 mg strength. 14.Potassium chloride 10 mEq daily. 15.Spiriva two puffs daily. 16.Trazodone 100 mg orally at bedtime. 17.Coumadin 2.5 mg orally daily. 18.Albuterol 0.083%, nebulize four times a day. 19.Breo Ellipta one puff daily. 20.Levaquin 750 mg orally daily for five days. Discharge Summary [facility] [address] [place]. [address] NAME: CRISTINA CLEMENT : 43 STATUS : DIS IN PAT#: [id number] AGE: 71 ADM/REG DATE : 12/14/16 MR#: [id number] REPORT SERV DATE: 12/17/16 DICTATED BY: JR. NEVES WILLIAM JOHN DATE: 12/16/16 REPORT STATUS : Draft TRANSCRIBED BY: KIM DATE: 12/16/16 HOSPITAL COURSE: The patient was a 71-year-old gentleman with a history of coronary artery disease with recent bypass grafting as well as insulin requiring diabetes mellitus on 4 L oxygen by nasal cannula at home, who presented to the emergency room with shortness of breath. The patient said he was feeling pretty much at his baseline; however, when pressed he would admit to mild worsening in shortness of breath. He denied any fevers, night sweats, chills, chest pain, palpitations, cough, sputum production, wheezing, abdominal pain, nausea, vomiting, diarrhea, or constipation. He has a home health nurse who was concerned about volume overload and the fact that he gained 2 pounds in the last week. He was evaluated at [facility], and subsequently transferred to [facility] for a large left pleural effusion with a troponin of 1.31. EKG was nonischemic. On initial exam, the patient was afebrile, blood pressure is 133/64, heart rate 89, respiratory rate 12, and saturation 95% on 5 L by nasal cannula. Exam had decreased breath sounds at the right base with mild inspiratory crackles, left side had decreased breath sounds up to 1/2 of the lung field. Please see Dr. Miller's excellent dictated history and physical for further details. The patient is admitted to [facility]. He had a left thoracentesis with evacuation 1.5 L of clear fluid. Fluid analysis was not done. The patient felt remarkably better. Unfortunately, followup chest x-ray showed some continued consolidation, therefore CT of the chest was felt to be prudent. This showed continued interstitial edema which the patient will continued to be diuresed for. It also showed areas in the right upper lobe, as well as bibasilar concerning for pneumonia. In addition, there was mediastinal lymphadenopathy measuring up to 1.6 x 1.5 cm. In regard to this, the patient will have a five-day course of Levaquin and will follow up with Pulmonary Medicine for further evaluation up to and including an endobronchial ultrasound. This was discussed with the patient, and the patient expressed no desire to pursue this at this point. Regarding the acute on chronic respiratory failure, he is not at his baseline. The remainder of the patient's health problems were stable and were not addressed. DISCHARGE DIET: ADA diet with a 1.5 L fluid restriction. ACTIVITY: As tolerated. FOLLOWUP: Followup will be with Dr. Castillo, his service line layer, as well as Smita Cummings, his primary care physician in one week, and [facility] in two to four weeks as well as Cardiovascular Thoracic Surgery who recently did his open-heart surgery. This discharge took 35 minutes for patient encounter, coordination of care, and documentation. For discharge exam and laboratory, please see my daily progress note. DICTATED BY: Rufus Neves Jr, MD WJF/KIM Discharge Summary [address] [address] NAME: CRISTINA CLEMENT : 43 STATUS : DIS IN PAT#: [id number] AGE: 71 ADM/REG DATE : 12/14/16 MR#: [id number] REPORT SERV DATE: 12/17/16 DICTATED BY: JR. NEVES WILLIAM JOHN DATE: 12/16/16 REPORT STATUS : Draft TRANSCRIBED BY: KIM DATE: 12/16/16 Rufus Neves Jr, MD / [id number] CC: Rufus Neves Jr, MD Amie Sims Reece, NP-C
--- NOTE | ~2016-12-14 | CN ---
Consultation Report [address] [place]. [address] NAME: CRISTINA VILLEDA : 43 STATUS : ADM IN [facility]#: [id number] AGE: 71 ADM/REG DATE : 12/14/16 MR#: [id number] REPORT SERV DATE: 12/15/16 DICTATED BY: STORMY SINGH DATE: 12/14/16 REPORT STATUS : Draft TRANSCRIBED BY: MODL DATE: 12/14/16 CONSULTATION DATE OF CONSULTATION: 12/14/[address] Miller: Thank you for requesting my opinion regarding evaluation and management of Mr. Villeda. Mr. Villeda is a 71-year-old gentleman with significant past medical history of coronary artery bypass graft surgery, insulin-dependent diabetes type 2, COPD on 3 L nasal cannula, hypertension hyperlipidemia, who presented as a transfer from [facility] Emergency Room with worsening shortness of breath. The patient describes that his symptoms had developed gradually over time. He noted that he had increasing weight gain of up to 2 to 4 pounds over the last week. He has had similar episode of shortness of breath associated with his heart failure, and in the past, he states that he has received Lasix. In the emergency room, he got 40 mg of IV Lasix and then underwent thoracentesis today by interventional Radiology which demonstrated 1500 mL of clear fluid. There were no immediate postprocedure complications. The patient does not have a chest x-ray, we will order one to ensure that there are no issues. The patient states that his shortness of breath is significantly improved, well localized to the chest, nonradiating, with no significant alleviating or exacerbating factors. PAST MEDICAL HISTORY: 1. Coronary artery disease with prior coronary artery bypass graft surgery. 2. Paroxysmal atrial fibrillation on anticoagulation. 3. COPD, on 3 L nasal cannula. 4. Insulin-dependent diabetes type 2. 5. Hypertension. 6. Hyperlipidemia. 7. Hypothyroidism. 8. PVD. 9. Chronic diastolic dysfunction. PAST SURGICAL HISTORY: 1. Coronary artery bypass graft surgery. 2. Mitral valve repair. 3. Right carotid endarterectomy. 4. Hemorrhoidectomy. 5. Cholecystectomy. ALLERGIES: SULFA. HOME MEDICATIONS: Reviewed and located in the paper chart. SOCIAL HISTORY: The patient is a former smoker. He denies any significant alcohol or Consultation Report [place] [address] [place]. [address] NAME: CRISTINA VILLEDA : 43 STATUS : ADM IN PAT#: [id number] AGE: 71 ADM/REG DATE : 12/14/16 MR#: [id number] REPORT SERV DATE: 12/15/16 DICTATED BY: STORMY SINGH DATE: 12/14/16 REPORT STATUS : Draft TRANSCRIBED BY: MODL DATE: 12/14/16 tobacco abuse. FAMILY HISTORY: Congestive heart failure, alcoholism, diabetes, and coronary artery disease. PHYSICAL EXAMINATION: VITAL SIGNS: Afebrile, T current 98.2, pulse 85, respiratory rate of 16, 4 L nasal cannula, sats 93, blood pressure 105/55. GENERAL: No acute distress. Chronically ill-appearing elderly male. HEENT: Normocephalic and atraumatic. Pupils are equal, round, and reactive to light and accommodation. Posterior oropharynx is clear. NECK: No JVD. No LAD. Trachea midline. CARDIOVASCULAR: Regular rate and rhythm. S1 and S2 present. LUNGS: Diminished breath sounds at the bases but crackles. ABDOMEN: Nontender. Nondistended. Soft. Positive bowel sounds. EXTREMITIES: No clubbing, cyanosis, or edema. SKIN: No new rashes, lesions, or ulcers. PSYCHIATRIC: Alert and oriented x3. Appropriate mood and affect. Appropriate insight and judgment. NEUROLOGIC: 5/5 strength in upper and lower extremities. Cranial nerves 2 through 12 intact. Gait not tested. DTRs not performed. LABORATORY: White count of 6, hemoglobin of 11, platelet count of 185. Troponins are elevated at 0.07 x2. Chemistries demonstrate a creatinine of 0.72. It is unclear whether or not the pleural fluid was sent for further diagnostic studies. IMAGING: Chest x-ray on 12/14/2016 demonstrates increased bilateral asymmetric infiltrates, increased bibasilar atelectasis, and increasing left-sided pleural effusion consistent with possible heart failure. This chest x-ray has been personally reviewed by me and I agree with the above interpretation. ASSESSMENT AND PLAN: 1. Mr. Luisito Villeda is a 71-year-old gentleman with significant past medical history of coronary artery disease, status post recent CABG who presents with worsening shortness of breath, increasing weight gain. The patient's chest x-ray demonstrated increasing bilateral infiltrates and large left-sided pleural effusion in the setting of normal white count. The patient already underwent a left-sided ultrasound-guided thoracentesis which drained 1500 mL of serous fluid. It is not clear to me whether studies were sent. ASSESSMENT AND PLAN: 1. Followup postprocedural chest x-ray ordered for tomorrow. 2. Optimize heart failure. Agree with diuretics, fluid restriction. 3. With regard to his chronic obstructive pulmonary disease, continue home Consultation Report [place] [id number] [place]. [address] NAME: CRISTINA VILLEDA : 43 STATUS : ADM IN PAT#: [id number] AGE: 71 ADM/REG DATE : 12/14/16 MR#: [id number] REPORT SERV DATE: 12/15/16 DICTATED BY: STORMY SINGH DATE: 12/14/16 REPORT STATUS : Draft TRANSCRIBED BY: KIM DATE: 12/14/16 bronchodilators. 4. The patient appears to be at or near his baseline as per patient. 5. I will follow with you. Thank you for allowing me to participate in Mr. Villeda's care. YEMI/KIM Stormy Singh M.D. / [id number] CC: Rufus Maurice Jr, MD AMIE SIMS REECE
--- NOTE | ~2016-12-14 | CN ---
Consultation Report [facility] [address] [place]. [address] NAME: CRISTINA VILLEDA : 43 STATUS : ADM IN PAT#: [id number] AGE: 71 ADM/REG DATE : 12/14/16 MR#: [id number] REPORT SERV DATE: 12/14/16 DICTATED BY: DATE: REPORT STATUS : Draft TRANSCRIBED BY: MODL DATE: 12/14/16 DATE OF CONSULTATION: 12/14/2016 CHIEF COMPLAINT/REASON FOR CONSULT: Elevated cardiac biomarkers and hypoxia. HISTORY OF PRESENT ILLNESS: Mr. Villeda is a 71-year-old gentleman, who was originally admitted to the hospital on 10/23/2016 with complaints of chest pain. During that hospitalization, he was found to have multivessel coronary artery disease and had a non-ST- elevation myocardial infarction and he underwent coronary artery bypass grafting on 10/28/2016. The patient also had severely decreased left ventricular systolic function on cardiac catheterization. He was subsequently discharged from hospital on 11/04/2016. At that time, we had encouraged the patient to attend rehab, but he declined at that time. He was readmitted on 11/11/2016 for acute hypoxic respiratory failure. He was subsequently diuresed. His medical therapy re-initiated and he was subsequently discharged from the hospital on 11/20/2016. The patient stated that he completed rehab and approximately three days and was discharged home with home health. At the urging of his home health nurse, he presented to [facility] and was transferred on 12/14/2016 to our institution. He was found to have mildly elevated cardiac troponin. He said he had one episode of chest pain since his last discharge from the hospital. He states that he was in his normal state of health, but it was thought that he had volume overload and he was found to have a left-sided pleural effusion. He states that he is now at baseline, feeling better. He underwent thoracentesis of his pleural effusion today and 1500 mL drained. The patient endorses compliance on an outpatient basis with his cardiac regimen. He does not follow a low-sodium diet. PAST MEDICAL HISTORY: 1. Coronary artery disease, status post coronary artery bypass grafting, 10/28/2016 with a MAURICIO to the LAD, a saphenous vein graft to D1, reverse saphenous vein graft to OM2, reverse saphenous vein graft to the posterior descending artery. 2. Mitral regurgitation status post mitral valve repair with 30 mm annuloplasty ring. 3. Qqmto-yy-djrbelx systolic heart failure, ejection fraction 20%. 4. Insulin-dependent diabetes mellitus. 5. Severe obstructive pulmonary disease, on chronic oxygen. 6. Peripheral vascular disease status post right carotid endarterectomy. 7. Hypertension. 8. Hyperlipidemia. 9. History of tobacco use. SOCIAL HISTORY: The patient lives at home, states he is a former smoker. He quit smoking at the time of his first admission to the hospital in October of this year. He does not use alcohol or extracurricular drugs. ALLERGIES: SULFA. Consultation Report [place] [id number] [facility] [place]. [address] NAME: CRISTINA VILLEDA : 43 STATUS : ADM IN [facility]#: [id number] AGE: 71 ADM/REG DATE : 12/14/16 MR#: [id number] REPORT SERV DATE: 12/14/16 DICTATED BY: DATE: REPORT STATUS : Draft TRANSCRIBED BY: MODLuis DATE: 12/14/16 MEDICAL HISTORY: Significant for a mother who at 94 of congestive heart failure and a father who of alcoholism. CURRENT INPATIENT MEDICATIONS: Include: 1. Aspirin 81 mg p.o. daily. 2. Atorvastatin 40 mg p.o. daily. 3. Amiodarone 200 mg p.o. b.i.d. 4. Carvedilol 3.125 mg p.o. b.i.d. 5. Diazepam 10 mg p.o. b.i.d. 6. Lasix 40 mg p.o. daily. 7. Gabapentin 400 mg p.o. t.i.d. 8. Insulin sliding scale. 9. Levothyroxine. 10.Ipratropium. 11.Trazodone. 12.Warfarin. REVIEW OF SYSTEMS: All systems are reviewed and is negative, except for dictated in HPI. PHYSICAL EXAMINATION: VITAL SIGNS: Temperature 98.2, pulse 81, respirations 16, oxygen saturations 93% on 4 L nasal cannula, blood pressures range between 105/55 and 128/63. GENERAL: Mr. Villeda is a chronically ill-appearing 71-year-old gentleman, resting comfortably, in a chair. NECK: I could not appreciate jugular venous distention or carotid bruits. HEART: Regular rate and rhythm. Soft S1 and S2. I could not appreciate murmurs, rubs, or gallops. LUNGS: Clear to auscultation in the anterior chong. The posterior chong have inspiratory and expiratory crackles bilaterally, greater on the left than on the right. ABDOMEN: Soft and nontender. EXTREMITIES: Warm and well perfused. There is no pitting edema present. DATA: An EKG performed on admission documented normal sinus rhythm at 93 beats per minute. There is a right bundle branch block. There are no ischemic ST-T segment changes. Chest x- ray performed documented increased bibasilar atelectasis and left pleural effusion. LABORATORY RESULTS: Noted a hemoglobin of 11 and hematocrit of 37 and platelet count of 185. INR of 1.6. Sodium 139, potassium 4.1, BUN 13, creatinine 0.72, CPK 76 and 53. Troponin 0.07 x2. IMPRESSION REPORT AND PLAN: 1. Bvwye-fd-wdxyitc systolic heart failure. 2. Severe oxygen-dependent chronic obstructive pulmonary disease. 3. Ischemic cardiomyopathy. Consultation Report [address] [address] NAME: CRISTINA VILLEDA : 43 STATUS : ADM IN PAT#: [id number] AGE: 71 ADM/REG DATE : 12/14/16 MR#: [id number] REPORT SERV DATE: 12/14/16 DICTATED BY: DATE: REPORT STATUS : Draft TRANSCRIBED BY: KIM DATE: 12/14/16 4. Coronary artery disease, status post coronary artery bypass grafting and mitral valve repair. 5. Peripheral vascular disease status post carotid endarterectomy. 6. Paroxysmal atrial fibrillation with subtherapeutic INR. 7. Dietary indiscretion. RECOMMENDATIONS: 1. We would strongly recommend limit the patient's sodium to less than 2 g per day. 2. Continue aspirin 81 mg p.o. daily. 3. Continue Coreg, unchanged at this visit. 4. We would decrease amiodarone to 200 mg once per day. 5. Continue Lipitor 40 mg p.o. daily. 6. We would recommend increasing Lasix to 40 mg p.o. b.i.d. 7. If the patient remains stable, we would recommend discharge for outpatient followup. It has been my pleasure to participate in his care. OMAR/KIM Patricia Castlilo M.D. / [id number] CC: Rufus Maurice Jr, MD REECE, AMIE SIMS
[2016-12-14] MEDS ORDERED: VALIUM10 MG PO (01:14)
[2016-12-14] MEDS ORDERED: SYNTHROID200 MCG PO (01:15)
[2016-12-14] MEDS ORDERED: NORCO1 TAB PO (01:15)
[2016-12-14] MEDS ORDERED: KDUR10 PO (01:15)
[2016-12-14] MEDS ORDERED: NEUR400 PO (01:15)
[2016-12-14] MEDS ORDERED: C25 PO (01:16)
[2016-12-14] MEDS ORDERED: COREG3 PO (01:16)
[2016-12-14] MEDS ORDERED: CORDARONE PO (01:16)
[2016-12-14] MEDS ORDERED: LIPITOR40 PO (01:17)
[2016-12-14] MEDS ORDERED: BREO ELLIPTA 21 EACH INH (01:17)
[2016-12-14] MEDS ORDERED: ALBUTEROL0.083 % INH (01:17)
[2016-12-14] MEDS ORDERED: HABIT21 TOP (01:18)
[2016-12-14] MEDS ORDERED: L20 PO (01:18)
[2016-12-14] MEDS ORDERED: SPIRIVA RESPIMAT INH (01:19)
[2016-12-14] MEDS ORDERED: AMARYL2 PO (01:20)
[2016-12-14] MEDS ORDERED: TRAZ100 PO (01:20)
[2016-12-14] MEDS ORDERED: BEN25 PO (01:21)
[2016-12-14] MEDS ORDERED: ASAB PO (01:22)
[2016-12-14] MEDS ORDERED: HUMALOGMIX SC (01:23)
[2016-12-14 05:02] LABS: INTERNATIONAL NORMAL RATI 1.6 UNITS (-)
[2016-12-14 05:04] LABS: PROTIME (NOT ORD) 19.3 SEC (12.0-14.5)
[2016-12-14 05:56] LABS: BASOPHILS 0.6 %; BASOPHILS ABSOLUTE 0.04 10/3/uL (0.0-0.16); EOSINOPHILS 4.2 %; EOSINOPHILS ABSOLUTE 0.28 10/3/uL (0.0-0.53); IMMATURE GRANULOCYTES 0.3 %; IMMATURE GRANULOCYTES ABSOLUTE 0.02 10/3/uL (0.0-0.11); LYMPHOCYTES 14.9 %; MEAN CORPUSCULAR HEMOGLOB 29.2 pg (26.0-34.0); MEAN CORPUSCULAR VOLUME 98.1 fL (80-100); MEAN PLATELET VOLUME 9.8 fL (9.2-13.0); MONOCYTES 9.2 %; MONOCYTES ABSOLUTE 0.62 10/3/uL (0.21-1.20); NEUTROPHILS 70.8 %; NEUTROPHILS ABSOLUTE 4.77 10/3/uL (2.02-8.40); PLATELET COUNT 185 10/3/uL (150-400); RED CELL COUNT 3.77 10/6/uL (4.7-6.1); WHITE BLOOD CELLS 6.7 10/3/uL (4.5-10.5)
[2016-12-14 05:59] LABS: MANUAL DIFF NO %; MEAN CORPUS HGB CONC 29.7 g/dL (32.0-36.0)
[2016-12-14 06:15] LABS: CALCIUM, SERUM 8.4 MG/DL (8.5-10.4); CHLORIDE, SERUM 98 MMOL/L (96-112); CO2 (CARBON DIOXIDE) 38 MMOL/L (24-34); CREATININE 0.72 MG/DL (0.70-1.30); GFR AFRICAN AMERICAN 108 ML/MIN (>=60); GFR NON AFRICAN AMERICAN 93 ML/MIN (>=60); GLUCOSE, SERUM 121 MG/DL (60-99); POTASSIUM, SERUM 4.1 MMOL/L (3.5-5.3); SODIUM, SERUM 139 MMOL/L (135-148)
[2016-12-14 06:26] LABS: BUN (BLOOD UREA NITROGEN) 13 MG/DL (6-23); CPK 76 U/L (0-200); TROPONIN I 0.07 NG/ML (<0.05)
[2016-12-14 11:36] LABS: CK-MB 1.8 NG/ML; CPK 53 U/L (0-200); TROPONIN I 0.07 NG/ML (<0.05)
[2016-12-15 05:58] LABS: BASOPHILS 0.4 %; BASOPHILS ABSOLUTE 0.02 10/3/uL (0.0-0.16); EOSINOPHILS 5.2 %; EOSINOPHILS ABSOLUTE 0.28 10/3/uL (0.0-0.53); HEMOGLOBIN 10.2 g/dL (13.6-17.8); LYMPHOCYTES 22.4 %; LYMPHOCYTES ABSOLUTE 1.21 10/3/uL (0.67-4.30); MEAN CORPUSCULAR VOLUME 96.2 fL (80-100); MEAN PLATELET VOLUME 9.8 fL (9.2-13.0); MONOCYTES 11.1 %; NEUTROPHILS 60.9 %; NEUTROPHILS ABSOLUTE 3.29 10/3/uL (2.02-8.40); PLATELET COUNT 236 10/3/uL (150-400); RBC DISTRIBUTION WIDTH 14.9 % (12.0-16.0); WHITE BLOOD CELLS 5.4 10/3/uL (4.5-10.5)
[2016-12-15 06:01] LABS: HEMATOCRIT 32.7 % (40.0-51.0); MANUAL DIFF NO %; MEAN CORPUS HGB CONC 31.2 g/dL (32.0-36.0)
[2016-12-15 06:06] LABS: PROTIME (NOT ORD) 22.1 SEC (12.0-14.5)
[2016-12-15 06:15] LABS: BUN (BLOOD UREA NITROGEN) 14 MG/DL (6-23); CALCIUM, SERUM 8.6 MG/DL (8.5-10.4); CHLORIDE, SERUM 95 MMOL/L (96-112); CO2 (CARBON DIOXIDE) 40 MMOL/L (24-34); CREATININE 0.76 MG/DL (0.70-1.30); GFR AFRICAN AMERICAN 106 ML/MIN (>=60); GFR NON AFRICAN AMERICAN 91 ML/MIN (>=60); GLUCOSE, SERUM 129 MG/DL (60-99); POTASSIUM, SERUM 3.8 MMOL/L (3.5-5.3); SODIUM, SERUM 139 MMOL/L (135-148)
[2016-12-16 06:00] LABS: CALCIUM, SERUM 8.7 MG/DL (8.5-10.4); CHLORIDE, SERUM 96 MMOL/L (96-112); CO2 (CARBON DIOXIDE) 39 MMOL/L (24-34); CREATININE 0.85 MG/DL (0.70-1.30); GFR AFRICAN AMERICAN 101 ML/MIN (>=60); GFR NON AFRICAN AMERICAN 87 ML/MIN (>=60); GLUCOSE, SERUM 130 MG/DL (60-99); POTASSIUM, SERUM 4.1 MMOL/L (3.5-5.3); SODIUM, SERUM 138 MMOL/L (135-148)
[2016-12-16 06:01] LABS: BUN (BLOOD UREA NITROGEN) 19 MG/DL (6-23)
[2016-12-16 06:06] LABS: INTERNATIONAL NORMAL RATI 2.2 UNITS (-); PROTIME (NOT ORD) 23.8 SEC (12.0-14.5)
[2016-12-16] MEDS ORDERED: L40 PO (11:18)
[2016-12-16] MEDS ORDERED: PRIN2.5 PO (11:22)
[2016-12-16] MEDS ORDERED: LEVAQUIN750 MG PO (11:29)
== END 2016-12-16 17:50 | disposition home health service (06) | DRG 291 ==
LOC: 5NO 00:36
PROVIDERS: Internal Medicine
PROC: 0W9B3ZZ Drainage of Left Pleural Cavity, Percutaneous Approach (ICD-10-PCS; principal; 2016-12-14)
DX: I50.23 Acute on chronic systolic (congestive) heart failure (principal); J96.21 Acute and chronic respiratory failure with hypoxia; J18.9 Pneumonia, unspecified organism; J90 Pleural effusion, not elsewhere classified; I24.8 Other forms of acute ischemic heart disease; J44.9 Chronic obstructive pulmonary disease, unspecified; I25.5 Ischemic cardiomyopathy; I48.0 Paroxysmal atrial fibrillation; J44.0 Chronic obstructive pulmonary disease with (acute) lower respiratory infection; E11.9 Type 2 diabetes mellitus without complications; Z79.4 Long term (current) use of insulin; I25.10 Atherosclerotic heart disease of native coronary artery without angina pectoris; Z95.1 Presence of aortocoronary bypass graft; I73.9 Peripheral vascular disease, unspecified; E78.5 Hyperlipidemia, unspecified; Z79.01 Long term (current) use of anticoagulants; Z88.2 Allergy status to sulfonamides
CPT/HCPCS: 32555; 71010; 71260; 80048; 82550; 82553; 82962; 84484; 85025; 85610; 85730; 93005; 94640; A9270-GY; Q9967